=== PATIENT | male | born 1950 | race Caucasian/White ===

== ENCOUNTER 2016-07-09 12:00 | Outpatient (CLI) | payer BC ==
[~2016-07-09] VITALS: Ht 188 cm; Wt 103.4 kg
[~2016-07-09 12:00] MED LIST: PRD20T PO
[2016-07-09] MEDS ORDERED: SULF1TAB34 PO (13:10)
[2016-07-09] MEDS ORDERED: ALPR0.25 PO (13:10)
[2016-07-09] MEDS ORDERED: TAMS0.4C2 PO (13:10)
[2016-07-09] MEDS ORDERED: ADAL40PE SQ (13:10)
[2016-07-09] MEDS ORDERED: OMEG1CAP PO (13:10)
[2016-07-09] MEDS ORDERED: LEFL20TA PO (13:10)
[2016-07-09] MEDS ORDERED: MULT1CAP27 PO (13:10)
[2016-07-09] MEDS ORDERED: FINA5TAB PO (13:10)
[2016-07-09] MEDS ORDERED: OMEG10005 PO (13:10)
[2016-07-09] MEDS ORDERED: CHOL10003 PO (13:10)
[2016-07-09] MEDS ORDERED: BUSP5TAB59 PO (13:10)
[2016-07-09] MEDS ORDERED: ESCI20TA PO (13:10)
[2016-07-09] MEDS ORDERED: PITA2TAB2 PO (13:35)
== END 2016-07-09 13:36 ==
LOC: PREOP 12:00
PROVIDERS: ATTEND Surgery Pediatric Surgery
DX: Z01.818 Encounter for other preprocedural examination (principal); Z12.11 Encounter for screening for malignant neoplasm of colon

== ENCOUNTER 2016-07-11 10:18 | Day surgery (SDC) | payer BC ==
[2016-07-09] MEDS: MIDAZOLAM 2 MG/2 ML (VERSED) VIAL IVP PRN (12:08)
[~2016-07-11 10:18] MED LIST changes: +ADAL40PE SQ; +ALPR0.25 PO; +BUSP5TAB59 PO; +CHOL10003 PO; +ESCI20TA PO; +FINA5TAB PO; +LEFL20TA PO; +MULT1CAP27 PO; +OMEG10005 PO; +OMEG1CAP PO; +PITA2TAB2 PO; +SULF1TAB34 PO; +TAMS0.4C2 PO
[2016-07-11] MEDS ORDERED: NS IV 500 ML 500 ML ONE (10:26)
[2016-07-11] MEDS ORDERED: NALOXONE 0.4 MG/ML 1 ML (NARCAN) VIAL IVP PRN (10:30)
[2016-07-11] MEDS ORDERED: FLUMAZENIL (ROMAZICON) 0.1 MG/ML 5 ML VIAL INJ PRN (10:30)
[2016-07-11] MEDS ORDERED: NS IV 500 ML 500 ML IV ONE (10:30)
[2016-07-11 10:34] VITALS: BP 136/85
--- NOTE | 2016-07-11 10:58 | Conscious Sedation/ASA ---
Conscious Sedation Pre-Proced Time Reviewed: 10:50 ASA Class: 2 Airway Mallampati Classification: (mentasta appropriate class) I. II. III, IV Lungs Heart ASA score ASA 1: a normal healthy patient ASA 2: a patient with a mild systemic disease (mid diabetes, controlled hypertension, obesity ASA 3: a patient with a severe systemic disease that limits activity (angina , COPD, prior Myocardial infarction) ASA 4: a patient with an incapacitating disease that is a constant threat to life (CHF, renal failure) ASA 5: a moribund patient not expected to survive 24 hrs. (ruptured aneurysm) ASA 6: a declared brain patient whose organs are being harvested. For emergent operations, add the letter E after the classification Grade 2 Sedation Plan: Analgesia, Amnesia, Plan communicated to team members, Discussed options with patient/fam, Discussed risks with patient/fam Note The patient is an appropriate candidate to undergo the planned procedure, sedation, and anesthesia. The patient immediately re-assessed prior to indication. THOMAS BROOKS MD July 11, 2016 10:58 am
--- NOTE | 2016-07-11 10:59 | Progress Note-Pre Operative ---
Pre-Operative Progress Note H&P Reviewed The H&P was reviewed, patient examined and no changes noted. Date H&P Reviewed: July 11, 2016 Time H&P Reviewed: 10:50 Pre-Operative Diagnosis: screening colonoscopy THOMAS BROOKS MD July 11, 2016 10:59 am
[2016-07-11] MEDS ORDERED: morphine INJ 10 MG/ML 1ML (SYR OR VIAL) IV PRN (11:00)
[2016-07-11] MEDS ORDERED: ONDANSETRON 4 MG/2 ML (SDV) Z0FRAN IV PRN (11:00)
[2016-07-11] MEDS ORDERED: ACETAMINOPHEN 325 MG TABLET/CAPLET (TYLENOL) PO PRN (11:00)
[2016-07-11] MEDS ORDERED: HYDROcodone/APAP 5 MG/325 MG (LORTAB) TAB PO PRN (11:00)
[2016-07-11] MEDS ORDERED: fentaNYL INJECTION 100 MCG/2 ML AMP ONE ×2 (11:32)
[2016-07-11] MEDS ORDERED: LIDOCAINE JELLY 2% (XYLOCAINE) 5 ML TUBE ONE (11:32)
[2016-07-11] MEDS ORDERED: MIDAZOLAM 2 MG/2 ML (VERSED) VIAL ONE ×4 (11:33)
[2016-07-11] MEDS: fentaNYL INJECTION 100 MCG/2 ML AMP IVP PRN ×4 (11:40→12:10)
[2016-07-11] MEDS: MIDAZOLAM 2 MG/2 ML (VERSED) VIAL IVP PRN ×3 (11:50→11:57)
--- NOTE | 2016-07-11 12:23 | Progress Note-Post Operative ---
Post-Operative Progess Note Surgeon (s)/Practice Managers (s) Surgeon THOMAS BROOKS MD Practice Managers: none Pre-Operative Diagnosis screening colonoscopy Post-Operative Diagnosis chronic stage 2 ext and int hemorrhoids. Procedure & Operative Findings Date of Procedure 07/11/16 Procedure Preformed/Findings Colonoscopy Anesthesia Type CS Estimated Blood Loss Estimated blood loss (mL): minimal Specimens/Packing Specimens Removed none Packing: none THOMAS BROOKS MD July 11, 2016 12:23 pm
--- NOTE | 2016-07-11 12:24 | Discharge Inst-Surgical ---
D/C Lap Instructions-CECILIA Follow Up 10 years Activity as tolerated High Fiber Diet 25g or more per day Avoid Alcohol, Caffeine, Spicy Spearman and Acid foods. Drink 64 fluid oz or more of fluids per day. Symptoms to Report: Fever over 101 degree F, Nausea/Vomiting If any problems/questions: Contact your physician or go to Emergency Room THOMAS BROOKS MD July 11, 2016 12:24 pm
[2016-07-11 12:45] VITALS: BP 136/85
--- NOTE | 2016-07-11 13:02 | OPERATIVE REPORT ---
DATE OF SERVICE: 07/11/2016 DATE OF PROCEDURE: 07/11/2016. ATTENDING PRIMARY CARE PHYSICIAN: PREOPERATIVE DIAGNOSIS: Screening colonoscopy. POSTOPERATIVE DIAGNOSIS: Chronic stage II external and internal hemorrhoids. PROCEDURE: Colonoscopy. SURGEON: Dr. Brooks. ANESTHESIA: Conscious sedation. ESTIMATED BLOOD LOSS: Minimal. FINDINGS: Chronic stage II external and internal hemorrhoids, not actively edematous nor inflamed. The remainder of the rectum and colon were normal. No polyps identified. DISPOSITION: The patient tolerated the procedure well. The patient is a 65-year-old male in need of a followup colonoscopy. This gentleman reports that he is doing well and for the most part having normal bowel movements with no major issues with diarrhea or constipation. He also does not report any issues with red blood per rectum or any dark tarry stools. He also does not report any family history of colon cancer. His last colonoscopy was in 2005. The patient was brought to the endoscopy suite, laid in the left lateral decubitus position. After adequate IV pain and sedating medications and conscious sedation anesthesia, a digital rectal examination was performed. Chronic mild stage II external and internal hemorrhoids were identified which were not actually edematous nor inflamed and no bleeding. Normal sphincter tone was felt and there were no palpable masses. The prostate gland was palpable and appeared normal. The endoscope was then intubated into the anus and rectum and gently insufflated. The endoscope was then advanced to the valves of Lamb of the rectum with no polyps or any neoplasms identified. We then proceeded through the sigmoid colon where no diverticulosis identified. The endoscope was then advanced to the remainder of the descending, transverse and ascending colon to the cecum. These segments were normal. There were no polyps or any neoplasms identified throughout the colon or rectum. The endoscope was then slowly withdrawn while taking a second look and suctioning of residual air with no additional findings. The patient tolerated the procedure well. We will recommend continued medical management with a high fiber diet with at least 30 grams of fiber per day as well as at least 64 fluid ounces of water to promote soft stools on a daily basis. There were no polyps identified and he does not need another colonoscopy for another 10 years. Job ID: [id number] DocumentID: [id number] Dictated Date: 07/11/2016 12:22:06 Glove Turner And Former Date: 07/11/2016 13:02:05 Dictated By: THOMAS BROOKS MD
[2016-07-11 13:11] VITALS: BP 123/87
[2016-07-11 13:15] VITALS: BP 123/87
== END 2016-07-11 13:20 | disposition home or self-care (01) ==
LOC: ENDO 10:18
PROVIDERS: ATTEND Surgery Pediatric Surgery
DX: Z12.11 Encounter for screening for malignant neoplasm of colon (principal); K64.1 Second degree hemorrhoids; M06.9 Rheumatoid arthritis, unspecified; E78.00 Pure hypercholesterolemia, unspecified; N40.0 Benign prostatic hyperplasia without lower urinary tract symptoms; Z96.652 Presence of left artificial knee joint; Z79.899 Other long term (current) drug therapy

== ENCOUNTER 2016-09-10 15:42 | Emergency (ER) | payer BC ==
[~2016-09-10] VITALS: Ht 182.9 cm; Wt 90.7 kg
[2016-09-10] MEDS ORDERED: morphine INJ 10 MG/ML 1ML (SYR OR VIAL) IV STA (16:01)
--- NOTE | 2016-09-10 16:01 | ED Chest Pain ---
General Chief Complaint: Chest Pain Stated Complaint: CHEST PAIN Nursing Triage Note: AMBULATED TO ROOM 08 WITH COMPLAINTS OF CHEST PRESSURE ET SOA X2 DAYS. Nursing Sepsis Screen: No Definite Risk Source: patient, spouse Exam Limitations: no limitations History of Present Illness Time seen by provider: 15:46 Initial Comments Patient presents by private conveyance with his spouse coming from Dr. Celestin's clinic. For the past 2-3 days she's felt a tightness and intermittent pain comes and goes in the center of his chest. This become pain with shortness of breath especially on exertion. He is not having any dyspnea at rest. No sweats. He has occasional nausea. He does not take aspirin or any other blood thinner. He has no coronary history however he had a stress test prior to his back surgery and it was positive so he got a catheter in November 2015 which was subsequently unremarkable according to the family. This was done at [place]. He is not taking any medicines for blood pressure or thyroid or diabetes. He does see Dr. Black, urology for chronic prostate issues. He is on tamsulosin and Bactrim. He also has rheumatoid arthritis for which he is on Humira and Arava. He also has a history of anxiety for which she uses Xanax and Lexapro and BuSpar. He has high cholesterol and is on Livalo. He takes them overload as well as occasional ibuprofen for pain. Allergies and Home Medications Allergies Coded Allergies: No Known Drug Allergies (Verified , 07/11/16) Home Medications Adalimumab 40 Mg/0.8 Ml Pen.ij.kit, 40 MG SQ every 2 weeks, (Reported) Alprazolam 0.25 Mg Tablet, 0.25 MG PO DAILY, (Reported) Buspirone HCl 5 Mg Tablet, 5 MG PO DAILY, (Reported) Cholecalciferol (Vitamin D3) 1,000 Unit Tablet, 1,000 UNIT PO DAILY, (Reported) Escitalopram Oxalate 20 Mg Tablet, 20 MG PO DAILY, (Reported) Finasteride 5 Mg Tablet, 5 MG PO DAILY, (Reported) Leflunomide 20 Mg Tablet, 20 MG PO DAILY, (Reported) Multivitamin 1 Each Capsule, 1 EACH PO DAILY, (Reported) Aurora-3 Acid Ethyl Esters 1 Gm Capsule, 2 GM PO BID, (Reported) take 2 (1gm) tabs Pitavastatin Calcium 2 Mg Tablet, 2 MG PO DAILY, (Reported) Sulfamethoxazole/Trimethoprim 1 Each Tablet, 0.5 EACH PO DAILY, (Reported) Tamsulosin HCl 0.4 Mg Cap.er.24h, 0.4 MG PO DAILY, (Reported) Review of Systems Constitutional: No chills, No diaphoresis, No fever Respiratory: See HPI, Denies Cough, Shortness of Air, SOA With Exertion, Denies SOA at Rest, Denies Wheezing Cardiovascular: See HPI, Chest Pain, Denies Edema, Denies Irregular Heart Rate , Denies Palpitations Gastrointestinal: See HPI, Denies Abdominal Pain, Denies Constipated, Denies Diarrhea, Nausea Genitourinary: Denies Burning, Denies Discharge Musculoskeletal: No back pain, joint pain (chronic RA) Skin: No pruritus, No rash Psychiatric/Neurological: Headache, Denies Numbness (past several days) Hematologic/Lymphatic: Denies Anemia, Denies Blood Clots Past Jmhpiaj-Hvzgfu-Fymffl Hx Patient Social History Alcohol Use: Denies Use Recreational Drug Use: No Smoking Status: Never a Smoker Recent Foreign Travel: No Contact w/Someone Who Travel: No Recent Infectious Disease Expo: No Recent Hopitalizations: No Seasonal Allergies Seasonal Allergies: No Surgeries HX Surgeries: Yes (Left TKR, back sx, orchiectomy, hand joint fusion, ) Surgeries: Appendectomy, Testicular Respiratory Hx Respiratory Disorders: Yes Respiratory Disorders: Sleep Apnea Cardiovascular Hx Cardiac Disorders: No Neurological Hx Neurological Disorders: No Reproductive System Hx Reproductive Disorders: No Genitourinary Hx Genitourinary Disorders: No Gastrointestinal Hx Gastrointestinal Disorders: No Musculoskeletal Hx Musculoskeletal Disorders: Yes Musculoskeletal Disorders: Arthritis, Rheumatoid Arthritis, Chronic Back Pain Endocrine Hx Endocrine Disorders: No HEENT HX ENT Disorders: No Cancer Hx Cancer: No Psychosocial Hx Psychiatric Problems: No Integumentary HX Skin/Integumentary Disorder: No Blood Transfusions Hx Blood Disorders: No Physical Exam Vital Signs Vital Sign - Last 12Hours 09/10/16 15:43 Temp 98.0 Pulse 82 Resp 16 B/P (MAP) 161/89 Pulse Ox 97 Capillary Refill : Less Than 3 Seconds General Appearance: No Apparent Distress, WD/WN HEENT: PERRL/EOMI, Pharynx Normal Neck: Normal Inspection, Supple Respiratory: Chest Non Tender, Lungs Clear, Normal Breath Sounds Cardiovascular: Regular Rate, Rhythm, No Edema, No Gallop, No Murmur, Normal Peripheral Pulses Gastrointestinal: Normal Bowel Sounds, Non Tender, Soft Extremity: Normal Capillary Refill, Normal Inspection, Calf Tenderness, No Inflammation, No Pedal Edema, No Swelling, Other (no erythema. Patient is tender on most every joint pressed on including the rib cage) Neurologic/Psychiatric: Alert, Oriented x3 (.), Normal Mood/Affect Skin: Normal Color, Warm/Dry, No Pallor Lymphatic: No Adenopathy Progress/Results/Core Measures Results/Orders Lab Results Laboratory Tests Test 09/10/16 15:55 09/10/16 18:31 Range/Units White Blood Count 7.8 4.3-11.0 10^3/uL Red Blood Count 4.88 4.35-5.85 10^6/uL Hemoglobin 14.2 13.3-17.7 G/DL Hematocrit 42 40-54 % Mean Corpuscular Volume 86 80-99 FL Mean Corpuscular Hemoglobin 29 25-34 PG Mean Corpuscular Hemoglobin Concent 34 32-36 G/DL Red Cell Distribution Width 13.1 10.0-14.5 % Platelet Count 167 130-400 10^3/uL Mean Platelet Volume 11.1 H 7.4-10.4 FL Neutrophils (%) (Auto) 61 42-75 % Lymphocytes (%) (Auto) 23 12-44 % Monocytes (%) (Auto) 13 H 0-12 % Eosinophils (%) (Auto) 2 0-10 % Basophils (%) (Auto) 0 0-10 % Neutrophils # (Auto) 4.8 1.8-7.8 X 10^3 Lymphocytes # (Auto) 1.8 1.0-4.0 X 10^3 Monocytes # (Auto) 1.0 0.0-1.0 X 10^3 Eosinophils # (Auto) 0.2 0.0-0.3 10^3/uL Basophils # (Auto) 0.0 0.0-0.1 10^3/uL Erythrocyte Sedimentation Rate 6 0-30 MM/HR Prothrombin Time 12.4 12.2-14.7 SEC INR Comment 1.0 0.8-1.4 Activated Partial Thromboplast Time 29 24-35 SEC D-Dimer 0.30 0.00-0.49 UG/ML Sodium Level 139 135-145 MMOL/L Potassium Level 4.3 3.6-5.0 MMOL/L Chloride Level 109 H 98-107 MMOL/L Carbon Dioxide Level 23 21-32 MMOL/L Anion Gap 7 5-14 MMOL/L Blood Urea Nitrogen 25 H 7-18 MG/DL Creatinine 0.87 0.60-1.30 MG/DL Estimat Glomerular Filtration Rate > 60 BUN/Creatinine Ratio 29 Glucose Level 112 H 70-105 MG/DL Calcium Level 9.5 8.5-10.1 MG/DL Magnesium Level 2.3 1.8-2.4 MG/DL Total Bilirubin 0.8 0.1-1.0 MG/DL Aspartate Amino Transf (AST/SGOT) 37 H 5-34 U/L Alanine Aminotransferase (ALT/SGPT) 36 0-55 U/L Alkaline Phosphatase 68 40-136 U/L Myoglobin 68.7 10.0-92.0 NG/ML Troponin I < 0.30 < 0.30 <0.30 NG/ML C-Reactive Protein High Sensitivity 0.08 0.00-0.50 MG/DL Total Protein 7.1 6.4-8.2 GM/DL Albumin 4.2 3.2-4.5 GM/DL Amylase Level 52 25-125 U/L My Orders Orders - AIXA,JENNA J Cbc With Automated Diff (09/10/16 16:01) Magnesium (09/10/16 16:01) Chest 1 View, Ap/Pa Only (09/10/16 16:01) Ekg Tracing (09/10/16 16:01) Cardiac Profile 1 (09/10/16 16:01) Comprehensive Metabolic Panel (09/10/16 16:01) Myoglobin Serum (09/10/16 16:01) Protime With Inr (09/10/16 16:) Partial Thromboplastin Time (09/10/16 16:01) O2 (09/10/16 16:01) Monitor-Rhythm Ecg Trace Only (09/10/16 16:01) Lipid Panel (09/11/16 06:00) Aspirin Chewable Tablet (Baby Aspirin Ch (09/10/16 16:15) Rx-Nitroglycerin Sl Tabs (Rx-Nitrostat S (09/10/16 16:15) Morphine Injection (Morphine Injection (09/10/16 16:01) Saline Lock/Iv-Start (7/10/17 16:01) Amylase (09/10/16 16:01) Fibrin Degradation Products (09/10/16 16:01) Hs C Reactive Protein (09/10/16 16:53) Erythrocyte Sedimentation Rate (09/10/16 16:53) Troponin I (09/10/16 18:27) Medications Given in ED Current Medications Medications Dose Ordered Sig/Danette Route Start Time Stop Time Status Last Admin Dose Admin Aspirin 324 mg ONCE ONCE PO 09/10/16 16:15 09/10/16 16:16 DC 09/10/16 16:16 324 MG Nitroglycerin 0.4 mg PRN PRN SL 09/10/16 16:15 09/10/16 16:33 0.4 MG Vital Signs/I&O Vital Sign - Last 12Hours 09/10/16 15:43 Temp 98.0 Pulse 82 Resp 16 B/P (MAP) 161/89 Pulse Ox 97 Blood Pressure Mean: 113 Progress Note #1: Time: 16:[address] Celestin's office and they're faxing over a copy of the catheter report from November 2015. Calf tenderness does not have any other hallmarks of a DVT. We'll get a d-dimer but it also may be falsely elevated given his rheumatoid arthritis. He is satting 98% on room air despite feeling a little short of breath. Heart rate normal. Well scores unlikely. Progress Note #2: Time: 16:30 Progress Note Receive Lab report dated 11/15/15 with the appropriate patient's name and date of attached. Done by Konrad Meyer. Left heart catheter after an abnormal stress test. Impression normal coronary arteries and normal LV function. The report was reviewed in detail. Patient reports she is having some discomfort in his right hip which his chronic and exacerbated by being on the cot. It is relieved by laying down and placing a pillow under the hip. Progress Note #3: Time: 19:05 Progress Note Patient's had a negative catheter 10 months ago as well as a delta T of 0. We' ll let him go home with the understanding that he will call Dr. Celestin's office and set up an appointment this week. He can also set up follow-up with Dr. Medrano if he prefers. ECG Initial ECG Impression Date: Sep 10, 2016 Initial ECG Impression Time: 15:49 Initial ECG Rate: 82 Initial ECG Rhythm: Normal Sinus Initial ECG Intervals: Normal Initial ECG Impression: Normal Initial ECG Comparisson: No Previous ECG Available Comment No ST wave aberration Diagnostic Imaging Diagonstic Imaging: Xray Plain Films/CT/US/NM/MRI: chest Comments No acute cardiopulmonary processes noted. [facility] [place], [place] NAME: [facility] REC#: [id number] PT STATUS: REG ER : 1950 PHYSICIAN: JENNA KRUSE MD ADMIT DATE: 09/10/16/ER Draft Date of Exam:09/10/16 CHEST 1 VIEW, AP/PA ONLY INDICATION: Substernal chest pain. EXAMINATION: Portable chest at 4:15 PM. FINDINGS: The heart size and pulmonary vascularity are normal. The lungs are clear. There are no effusions or pneumothoraces. IMPRESSION: Negative chest. Dictated on workstation # [id number] Dict: 09/10/16 1626 Trans: 09/10/16 1627 [id number] Interpreted by: BUDDY KIRK Electronically signed by: Reviewed: Reviewed by Me Departure Impression Impression: Primary Impression: Chest pain Qualified Codes: R07.2 - Precordial pain Disposition: 01 HOME, SELF-CARE Condition: Improved Departure-Patient Inst. Decision time for Depature: 19:06 Referrals: XIOMY CELESTIN MD (PCP/Family) Primary Care Physician Patient Instructions: Chest Pain (DC) Add. Discharge Instructions: Your chest pain does not seem to be from a rheumatoid flare considering your CRP and ESR were normal; Nor does it appear to be from a heart attack. You should call Dr. Celestin's office in the morning and make an appointment to be seen sometime in the next couple days to follow up this visit. If you have new or worsening symptoms such as fever or nausea and vomiting you should return to the ER otherwise follow up with your PCP. Make sure you are taking plenty of fluids. All discharge instructions reviewed with patient and/or family. Voiced understanding. Copy Copies To 1: XIOMY CELESTIN MD, TITUS J Sep 10, 2016 16:01
[2016-09-10 16:08] LABS: BASOPHILS % (AUTO) 0 % (0-10); EOSINOPHILS # (AUTO) 0.2 10^3/uL (0.0-0.3); EOSINOPHILS % (AUTO) 2 % (0-10); LYMPHOCYTES # (AUTO) 1.8 X 10^3 (1.0-4.0); LYMPHOCYTES % (AUTO) 23 % (12-44); MEAN CORPUSCULAR HEMOGLOBIN 29 PG (25-34); MEAN CORPUSCULAR HGB CONC 34 G/DL (32-36); MEAN CORPUSCULAR VOLUME 86 FL (80-99); MEAN PLATELET VOLUME 11.1 FL (7.4-10.4); MONOCYTES % (AUTO) 13 % (0-12); NEUTROPHILS # (AUTO) 4.8 X 10^3 (1.8-7.8); NEUTROPHILS % (AUTO) 61 % (42-75); PLATELET COUNT 167 10^3/uL (130-400); RED BLOOD COUNT 4.88 10^6/uL (4.35-5.85); RED CELL DISTRIBUTION WIDTH 13.1 % (10.0-14.5); WHITE BLOOD COUNT 7.8 10^3/uL (4.3-11.0)
[2016-09-10] MEDS ORDERED: ASPIRIN 81 MG CHEW (CHILDREN'S ASA) PO ONE (16:15)
[2016-09-10] MEDS: RX-NITROGLYCERIN 0.4 MG TAB BTL 25'S SL PRN ×2 (16:16→16:33)
--- NOTE | 2016-09-10 16:27 | Diagnostic Imaging Report ---
INDICATION: Substernal chest pain. EXAMINATION: Portable chest at 4:15 PM. FINDINGS: The heart size and pulmonary vascularity are normal. The lungs are clear. There are no effusions or pneumothoraces. IMPRESSION: Negative chest. Dictated by: Dictated on workstation # [id number]
[2016-09-10 16:28] LABS: ALANINE AMINOTRANSFERASE 36 U/L (0-55); ALBUMIN 4.2 GM/DL (3.2-4.5); AMYLASE 52 U/L (25-125); ANION GAP 7 MMOL/L (5-14); ASPARTATE AMINO TRANSFERASE 37 U/L (5-34); BILIRUBIN,TOTAL 0.8 MG/DL (0.1-1.0); BLOOD UREA NITROGEN 25 MG/DL (7-18); BUN/CREATININE RATIO 29; CALCIUM 9.5 MG/DL (8.5-10.1); CARBON DIOXIDE 23 MMOL/L (21-32); CHLORIDE 109 MMOL/L (98-107); CREATININE SERUM 0.87 MG/DL (0.60-1.30); GFR ESTIMATED > 60; GLUCOSE 112 MG/DL (70-105); MAGNESIUM 2.3 MG/DL (1.8-2.4); POTASSIUM 4.3 MMOL/L (3.6-5.0); SODIUM 139 MMOL/L (135-145); TOTAL PROTEIN 7.1 GM/DL (6.4-8.2)
[2016-09-10 16:35] LABS: MYOGLOBIN SERUM 68.7 NG/ML (10.0-92.0)
[2016-09-10 16:56] LABS: PROTHROMBIN TIME PATIENT 12.4 SEC (12.2-14.7)
[2016-09-10 19:25] VITALS: BP 155/84
--- OUTSIDE RECORDS SUMMARY | 2016-09-11 18:06 | XMS REPORT | Continuity of Care Document ---
Author Author [facility] Organization [facility] Address Unknown Phone Unavailable Care Team Providers Care Educational Programming Director Name Role Phone Dez Celestin PCP [phone] Source Comments Some departments are not documenting in the electronic medical record. If you do not see the information that you expected, contact Release of Information in the Health Information Management department at [phone] for further assistance in locating additional records.[facility] Active Allergies and Adverse Reactions No Known Allergies Current Medications Prescription Sig. Disp. Refills Start End Date Status Date Naproxen-Esomeprazole Mag Take by mouth twice Active (VIMOVO) 500-20 mg TbID daily. GLUCOSAM/MSM/CHONDR/VIT Take by mouth twice Active C/HYAL daily. (GLUCOSAMINE-CHONDROITIN- MSM PO) tamsulosin (FLOMAX) 0.4 Take 0.4 mg by mouth Active mg capsule daily. Do not crush, chew or open capsules. sertraline (ZOLOFT) 100 Take 100 mg by mouth Active mg tablet daily. trimethoprim/sulfamethoxa Take 1 Tab by mouth twice Active zole (BACTRIM) 80/400 mg daily. tablet finasteride (PROSCAR) 5 Take 5 mg by mouth daily. Active mg tablet leflunomide (ARAVA) 20 mg Take 20 mg by mouth Active tablet daily. HYDROcodone/acetaminophen Take 1 Tab by mouth every Active (NORCO) 7.5/325 mg tablet 6 hours as needed for Pain adalimumab(+) (HUMIRA Inject 40 mg into area(s) Active PEN) 40 mg/0.8 mL as directed once. injection pen Active Problems No known active problems Social History Tobacco Use Types Packs/Day Years Used Date Never Smoker Last Filed Vital Signs Vital Sign Reading Time Taken Blood Pressure 140/70 09/06/2015 9:43 AM CDT Pulse 77 09/06/2015 9:43 AM CDT Temperature 36.9 C (98.4 F) 09/06/2015 9:43 AM CDT Respiratory Rate 16 09/06/2015 9:43 AM CDT Height 1.88 m (6' 2") 09/06/2015 9:43 AM CDT Weight 102.967 kg (227 lb) 09/06/2015 9:43 AM CDT Body Mass Index 29.13 09/06/2015 9:43 AM CDT Oxygen Saturation 98% 09/06/2015 9:43 AM CDT Plan of Care Health Maintenance Due Date Last Done Comments Hepatitis C Screening 1950 Physical (Comprehensive) 11/12/1958 Exam Pertussis Vaccine 11/12/1962 Tetanus Vaccine 11/12/1968 Colorectal Cancer 11/12/2001 Screening Shingles Vaccine 2011 Influenza Vaccine 11/02/2016 Results from Last 3 Months Not on file
--- OUTSIDE RECORDS SUMMARY | 2016-09-11 18:07 | XMS REPORT | Continuity of Care Document ---
Author Author [facility] Organization [facility] Address Unknown Phone Unavailable Allergies Active Description Code Type Severity Reaction Onset Reported/Identified Relationship to Patient Clinical Status Yes No Known Drug Allergies [id number] Drug Allergy Unknown N/ A 07/11/2016 Medications Problems Date Dx Coded Attending Type Code Diagnosis Diagnosed By 04/15/2015 LUCAS MACIAS MD, Ot M47.816 SPONDYLOSIS W/O MYELOPATHY OR RADICULOPA 04/15/2015 LUCAS MACIAS MD Ot M51.16 INTERVERTEBRAL DISC DISORDERS W RADICULO 04/15/2015 LUCAS MACIAS MD Ot Z79.899 OTHER VIDEO ENGINEER (CURRENT) DRUG THERAPY 05/16/2015 LUCAS MACIAS MD Ot M47.816 05/16/2015 LUCAS MACIAS MD Ot M51.16 05/16/2015 LUCAS MACIAS MD Ot Z79.899 05/30/2015 LUCAS MACIAS MD Ot M47.816 05/30/2015 LUCAS MACIAS MD Ot M51.16 05/30/2015 LUCAS MACIAS MD Ot Z79.899 02/27/2016 LEANDER GRIER APRN Ot N50.82 SCROTAL PAIN 02/27/2016 LEANDER GRIER APRN Ot R10.32 LEFT LOWER QUADRANT PAIN 02/28/2016 LUCAS MACIAS MD Ot M47.816 SPONDYLOSIS W/O MYELOPATHY OR RADICULOPA 02/28/2016 LUCAS MACIAS MD Ot M51.16 INTERVERTEBRAL DISC DISORDERS W RADICULO 02/28/2016 LUCAS MACIAS MD Ot Z79.899 OTHER PRISON (CURRENT) DRUG THERAPY 02/29/2016 LEANDER GRIER APRN Ot N50.82 SCROTAL PAIN 02/29/2016 LEANDER GRIER APRN Ot R10.32 LEFT LOWER QUADRANT PAIN 03/04/2016 LEANDER GRIER APRN Ot N50.82 SCROTAL PAIN 03/04/2016 LEANDER GRIER APRN Ot R10.32 LEFT LOWER QUADRANT PAIN 07/09/2016 THOMAS BROOKS MD Ot Z01.818 ENCOUNTER FOR OTHER PREPROCEDURAL EXAMIN 07/09/2016 THOMAS BROOKS MD Ot Z12.11 ENCOUNTER FOR SCREENING FOR MALIGNANT NE 07/09/2016 THOMAS BROOKS MD Ot Z01.818 ENCOUNTER FOR OTHER PREPROCEDURAL EXAMIN 07/09/2016 THOMAS BROOKS MD Ot Z12.11 ENCOUNTER FOR SCREENING FOR MALIGNANT NE 07/11/2016 THOMAS BROOKS MD Ot E78.00 PURE HYPERCHOLESTEROLEMIA, UNSPECIFIED 07/11/2016 THOMAS BROOKS MD Ot K64.1 SECOND DEGREE HEMORRHOIDS 07/11/2016 THOMAS BROOKS MD Ot M06.9 RHEUMATOID ARTHRITIS, UNSPECIFIED 07/11/2016 THOMAS BROOKS MD Ot N40.0 BENIGN PROSTATIC HYPERPLASIA WITHOUT LOW 07/11/2016 THOMAS BROOKS MD Ot Z12.11 ENCOUNTER FOR SCREENING FOR MALIGNANT NE 07/11/2016 THOMAS BROOKS MD Ot Z79.899 OTHER PRISON (CURRENT) DRUG THERAPY 07/11/2016 THOMAS BROOKS MD Ot Z96.652 PRESENCE OF LEFT ARTIFICIAL KNEE JOINT 07/12/2016 THOMAS BROOKS MD Ot E78.00 PURE HYPERCHOLESTEROLEMIA, UNSPECIFIED 07/12/2016 THOMAS BROOKS MD Ot K64.1 SECOND DEGREE HEMORRHOIDS 07/12/2016 THOMAS BROOKS MD Ot M06.9 RHEUMATOID ARTHRITIS, UNSPECIFIED 07/12/2016 THOMAS BROOKS MD Ot N40.0 BENIGN PROSTATIC HYPERPLASIA WITHOUT LOW 07/12/2016 THOMAS BROOKS MD Ot Z12.11 ENCOUNTER FOR SCREENING FOR MALIGNANT NE 07/12/2016 THOMAS BROOKS MD Ot Z79.899 OTHER PRISON (CURRENT) DRUG THERAPY 07/12/2016 THOMAS BROOKS MD Ot Z96.652 PRESENCE OF LEFT ARTIFICIAL KNEE JOINT 07/17/2016 THOMAS BROOKS MD Ot E78.00 PURE HYPERCHOLESTEROLEMIA, UNSPECIFIED 07/17/2016 THOMAS BROOKS MD Ot K64.1 SECOND DEGREE HEMORRHOIDS 07/17/2016 THOMAS BROOKS MD Ot M06.9 RHEUMATOID ARTHRITIS, UNSPECIFIED 07/17/2016 THMOAS BROOKS MD Ot N40.0 BENIGN PROSTATIC HYPERPLASIA WITHOUT LOW 07/17/2016 THOMAS BROOKS MD Ot Z12.11 ENCOUNTER FOR SCREENING FOR MALIGNANT NE 07/17/2016 THOMAS BROOKS MD Ot Z79.899 OTHER VIDEO ENGINEER (CURRENT) DRUG THERAPY 07/17/2016 THOMAS BROOKS MD Ot Z96.652 PRESENCE OF LEFT ARTIFICIAL KNEE JOINT 07/18/2016 THOMAS BROOKS MD Ot E78.00 PURE HYPERCHOLESTEROLEMIA, UNSPECIFIED 07/18/2016 THOMAS BROOKS MD Ot K64.1 SECOND DEGREE HEMORRHOIDS 07/18/2016 THOMAS BROOKS MD, Ot M06.9 RHEUMATOID ARTHRITIS, UNSPECIFIED 07/18/2016 THOMAS BROOKS MD, Ot N40.0 BENIGN PROSTATIC HYPERPLASIA WITHOUT LOW 07/18/2016 THOMAS BROOKS MD Ot Z12.11 ENCOUNTER FOR SCREENING FOR MALIGNANT NE 07/18/2016 THOMAS BROOKS MD, Ot Z79.899 OTHER PRISON (CURRENT) DRUG THERAPY 07/18/2016 THOMAS BROOKS MD, Ot Z96.652 PRESENCE OF LEFT ARTIFICIAL KNEE JOINT Procedures Results Test Result Range Complete blood count (CBC) with automated white blood cell (WBC) differential - 02/27/16 12:00 Blood leukocytes automated count (number/volume) 5.4 10*3/ uL 4.3-11.0 Blood erythrocytes automated count (number/volume) 5.19 10*6 /uL 4.35-5.85 Venous blood hemoglobin measurement (mass/volume) 14.7 g/dL 13.3-17.7 Blood hematocrit (volume fraction) 44 % 40-54 Automated erythrocyte mean corpuscular volume 84 [foz_us] 80-99 Automated erythrocyte mean corpuscular hemoglobin (mass per erythrocyte) 28 pg 25-34 Automated erythrocyte mean corpuscular hemoglobin concentration measurement ( mass/volume) 34 g/dL 32-36 Automated erythrocyte distribution width ratio 13.2 % 10.0-14.5 Automated blood platelet count (count/volume) 205 10*3/uL 130-400 Automated blood platelet mean volume measurement 10.4 [foz_ us] 7.4-10.4 Automated blood neutrophils/100 leukocytes 48 % 42-75 Automated blood lymphocytes/100 leukocytes 37 % 12-44 Blood monocytes/100 leukocytes 11 % 0-12 Automated blood eosinophils/100 leukocytes 4 % 0-10 Automated blood basophils/100 leukocytes 1 % 0-10 Blood neutrophils automated count (number/volume) 2.6 10*3 1.8-7.8 Blood lymphocytes automated count (number/volume) 2.0 10*3 1.0-4.0 Blood monocytes automated count (number/volume) 0.6 10*3 0.0-1.0 Automated eosinophil count 0.2 10*3/uL 0.0-0.3 Automated blood basophil count (count/volume) 0.0 10*3/uL 0.0-0.1 Comprehensive metabolic panel - 02/27/16 12:00 Serum or plasma sodium measurement (moles/volume) 138 mmol/ L 135-145 Serum or plasma potassium measurement (moles/volume) 4.3 mmol/L 3.6-5.0 Serum or plasma chloride measurement (moles/volume) 107 mmol /L 98-107 Carbon dioxide 23 mmol/L 21-32 Serum or plasma anion gap determination (moles/volume) 8 mmol/L 5-14 Serum or plasma urea nitrogen measurement (mass/volume) 25 mg/dL 7-18 Serum or plasma creatinine measurement (mass/volume) 1.02 mg /dL 0.60-1.30 Serum or plasma urea nitrogen/creatinine mass ratio 25 NRG Serum or plasma creatinine measurement with calculation of estimated glomerular filtration rate > NRG Serum or plasma glucose measurement (mass/volume) 116 mg/dL 70-105 Serum or plasma calcium measurement (mass/volume) 9.4 mg/dL 8.5-10.1 Serum or plasma total bilirubin measurement (mass/volume) 0.5 mg/dL 0.1-1.0 Serum or plasma alkaline phosphatase measurement (enzymatic activity/volume) 60 U/L 40-136 Serum or plasma aspartate aminotransferase measurement (enzymatic activity/ volume) 35 U/L 5-34 Serum or plasma alanine aminotransferase measurement (enzymatic activity/volume ) 28 U/L 0-55 Serum or plasma protein measurement (mass/volume) 7.0 g/dL 6.4-8.2 Serum or plasma albumin measurement (mass/volume) 4.4 g/dL 3.2-4.5 Complete urinalysis with reflex to culture - 02/27/16 13:36 Urine color determination YELLOW NRG Urine clarity determination SLIGHTLY CLOUDY NRG Urine pH measurement by test strip 7 5- 9 Specific gravity of urine by test strip 1.010 1.016-1.022 Urine protein assay by test strip, semi-quantitative NEGATIVE NEGATIVE Urine glucose detection by automated test strip NEGATIVE NEGATIVE Erythrocytes detection in urine sediment by light microscopy NEGATIVE NEGATIVE Urine ketones detection by automated test strip NEGATIVE NEGATIVE Urine nitrite detection by test strip NEGATIVE NEGATIVE Urine total bilirubin detection by test strip NEGATIVE NEGATIVE Urine urobilinogen measurement by automated test strip (mass/volume) NORMAL NORMAL Urine leukocyte esterase detection by dipstick NEGATIVE NEGATIVE Automated urine sediment erythrocyte count by microscopy (number/high power field) NONE NRG Automated urine sediment leukocyte count by microscopy (number/high power field ) NONE NRG Bacteria detection in urine sediment by light microscopy NEGATIVE NRG Squamous epithelial cells detection in urine sediment by light microscopy 2-5 NRG Crystals detection in urine sediment by light microscopy NONE NRG Casts detection in urine sediment by light microscopy NONE NRG Mucus detection in urine sediment by light microscopy NEGATIVE NRG Complete urinalysis with reflex to culture NO NRG Encounters ACCT No. Visit Date/Time Discharge Status Pt. Type Provider Facility Loc./Unit Complaint [id number] 07/11/2016 10:18:00 2016 13:20:00 DIS Outpatient THOMAS BROOKS MD [facility] ENDO SCREENING [id number] 07/09/2016 12:00:00 2016 13:36:00 DIS Outpatient THOMAS BROOKS MD [facility] PREOP SCREENING [id number] 02/27/2016 11:14:00 2015 14:52:00 DIS Emergency LEANDER GRIER [facility] ER LEFT GROIN PAIN [id number] 04/15/2015 07:24:00 2015 09:04:00 DIS Outpatient LUCAS MACIAS MD [facility] CARD DD W/RADICULOPATHY LUMBAR [id number] 05/02/2015 12:53:00 ACT Outpatient LUCAS MACIAS MD [facility] CARD SPONDYLOSIS WITH LUMBAR RADICULOPATHY
[2016-09-20] MEDS ORDERED: PRED10TA22 PO (10:34)
== END 2016-09-10 19:25 | disposition home or self-care (01) ==
LOC: EDUNIT# 15:42 → ER 15:43
DX: Z96.652 Presence of left artificial knee joint; Z90.79 Acquired absence of other genital organ(s); M06.88 Other specified rheumatoid arthritis, vertebrae; Z90.49 Acquired absence of other specified parts of digestive tract; R07.9 Chest pain, unspecified
CPT/HCPCS: 36415; 71010; 80053; 82150; 83735; 83874; 84484; 85025; 85379; 85610; 85652; 85730; 86141; 93005; 93041; 96374

== ENCOUNTER 2016-09-13 20:22 | Outpatient (CLI) | payer BC ==
[~2016-09-13] VITALS: Ht 188 cm; Wt 90.7 kg
[2016-09-13] MEDS ORDERED: NS IV 1000 ML 1,000 ML IV ONE ×2 (20:45→21:45)
[2016-09-13 23:19] VITALS: BP 136/72
[2016-09-20] MEDS ORDERED: PRED10TA22 PO (10:34)
== END 2016-09-13 22:15 | disposition home or self-care (01) ==
LOC: 4THo 20:22 → 4TH 20:22 → 4THo 22:15
PROVIDERS: ATTEND Physician Assistant
DX: E86.9 Volume depletion, unspecified (principal); R51 Headache

== ENCOUNTER → 2016-09-13 | Outpatient (CLI) | payer BC ==
[2016-09-13 15:17] LABS: BASOPHILS % (AUTO) 0 % (0-10); EOSINOPHILS # (AUTO) 0.2 10^3/uL (0.0-0.3); EOSINOPHILS % (AUTO) 3 % (0-10); LYMPHOCYTES # (AUTO) 1.8 X 10^3 (1.0-4.0); LYMPHOCYTES % (AUTO) 23 % (12-44); MEAN CORPUSCULAR HEMOGLOBIN 30 PG (25-34); MEAN CORPUSCULAR HGB CONC 34 G/DL (32-36); MEAN CORPUSCULAR VOLUME 86 FL (80-99); MEAN PLATELET VOLUME 10.9 FL (7.4-10.4); MONOCYTES # (AUTO) 0.8 X 10^3 (0.0-1.0); MONOCYTES % (AUTO) 10 % (0-12); NEUTROPHILS % (AUTO) 64 % (42-75); PLATELET COUNT 181 10^3/uL (130-400); RED BLOOD COUNT 4.64 10^6/uL (4.35-5.85); RED CELL DISTRIBUTION WIDTH 13.1 % (10.0-14.5); WHITE BLOOD COUNT 7.7 10^3/uL (4.3-11.0)
[2016-09-13 15:25] LABS: BILIRUBIN,URINE NEGATIVE (NEGATIVE); KETONES,URINE 1+ (NEGATIVE); LEUKOCYTE ESTERASE ,URINE 1+ (NEGATIVE); NITRITE,URINE NEGATIVE (NEGATIVE); PH,URINE 5 (5-9); PROTEIN,URINE 1+ (NEGATIVE); UROBILINOGEN,URINE NORMAL (NORMAL)
[2016-09-13 15:33] LABS: ALANINE AMINOTRANSFERASE 29 U/L (0-55); ALBUMIN 4.3 GM/DL (3.2-4.5); ANION GAP 9 MMOL/L (5-14); ASPARTATE AMINO TRANSFERASE 35 U/L (5-34); BILIRUBIN,TOTAL 0.8 MG/DL (0.1-1.0); BLOOD UREA NITROGEN 25 MG/DL (7-18); BUN/CREATININE RATIO 29; CALCIUM 9.2 MG/DL (8.5-10.1); CARBON DIOXIDE 22 MMOL/L (21-32); CHLORIDE 110 MMOL/L (98-107); CREATINE KINASE 319 U/L (30-200); CREATININE SERUM 0.85 MG/DL (0.60-1.30); GFR ESTIMATED > 60; GLUCOSE 115 MG/DL (70-105); SODIUM 141 MMOL/L (135-145); TOTAL PROTEIN 7.2 GM/DL (6.4-8.2); hs C REACTIVE PROTEIN 0.08 MG/DL (0.00-0.50)
[2016-09-13 15:35] LABS: ERYTHROCYTE SEDIMENTATION RATE 7 MM/HR (0-30)
[2016-09-13 15:50] LABS: SQUAMOUS EPITHELIAL CELL,UR 0-2 /HPF
[2016-09-14 03:29] LABS: LYME AB G M < 0.01 Index (0.00-0.89)
[2016-09-14 06:58] LABS: LYME AB INTERP Negative (Negative)
[2016-09-14 07:27] LABS: TULAREMIA ANTIBODY <1:20
[2016-09-14 14:41] LABS: EHRLICHIA CHAFFEENSIS G ABY <1:16 (<1:16)
[2016-09-15 07:28] LABS: IGG ROCKY MOUNTAIN SPOTTED FEV <1:16 (<1:16); IGM ROCKY MOUNTAIN SPOTTED FEV <1:10 (<1:10)
== END ==
LOC: LAB 14:50
PROVIDERS: ATTEND Physician Assistant
DX: M79.1 Myalgia (principal); R07.89 Other chest pain
CPT/HCPCS: 36415; 80053; 81000; 82550; 83605; 85025; 85652; 86141; 86618; 86666; 86668; 86757; 87088

== ENCOUNTER 2016-09-19 13:54 | Observation (INO) | payer BC ==
[~2016-09-19] VITALS: Ht 188 cm; Wt 101.9 kg
[2016-09-19 14:00] VITALS: BP 140/83
[2016-09-19] MEDS ORDERED: ONDANSETRON 4 MG/2 ML (SDV) Z0FRAN IVP PRN (14:00)
[2016-09-19] MEDS ORDERED: fentaNYL INJECTION 100 MCG/2 ML AMP IVP PRN (14:00)
[2016-09-19] MEDS ORDERED: ALPRAZolam 0.25 MG (XANAX) TAB PO PRN (14:00)
[2016-09-19] MEDS ORDERED: ACETAMINOPHEN 500 MG TAB (TYLENOL) PO PRN (14:00)
[2016-09-19] MEDS ORDERED: CATHETER FLUSH 10 ML SYR IV PRN (14:30)
[2016-09-19] MEDS ORDERED: SULF-11 PO (14:41)
[2016-09-19] MEDS ORDERED: NAPR1TAB21 PO (14:41)
[2016-09-19] MEDS: HYDROcodone/APAP 5 MG/325 MG (LORTAB) TAB PO PRN (15:01)
[2016-09-19] MEDS: NS IV 1000 ML 1,000 ML IV SCH ×2 (15:02→22:30)
[2016-09-19] MEDS ORDERED: LEFL20TA18 PO (15:04)
[2016-09-19] MEDS ORDERED: LEVO500T80 PO (15:04)
[2016-09-19] MEDS ORDERED: IBUP-30 PO (15:09)
[2016-09-19 15:20] LABS: BILIRUBIN,URINE NEGATIVE (NEGATIVE); KETONES,URINE NEGATIVE (NEGATIVE); LEUKOCYTE ESTERASE ,URINE 1+ (NEGATIVE); NITRITE,URINE NEGATIVE (NEGATIVE); PH,URINE 5 (5-9); PROTEIN,URINE 1+ (NEGATIVE); UROBILINOGEN,URINE NORMAL (NORMAL)
[2016-09-19 15:46] LABS: BASOPHILS % (AUTO) 1 % (0-10); EOSINOPHILS # (AUTO) 0.1 10^3/uL (0.0-0.3); EOSINOPHILS % (AUTO) 2 % (0-10); LYMPHOCYTES # (AUTO) 1.6 X 10^3 (1.0-4.0); LYMPHOCYTES % (AUTO) 25 % (12-44); MEAN CORPUSCULAR HEMOGLOBIN 29 PG (25-34); MEAN CORPUSCULAR HGB CONC 34 G/DL (32-36); MEAN CORPUSCULAR VOLUME 86 FL (80-99); MEAN PLATELET VOLUME 10.6 FL (7.4-10.4); MONOCYTES # (AUTO) 0.9 X 10^3 (0.0-1.0); MONOCYTES % (AUTO) 13 % (0-12); NEUTROPHILS # (AUTO) 3.9 X 10^3 (1.8-7.8); NEUTROPHILS % (AUTO) 60 % (42-75); PLATELET COUNT 170 10^3/uL (130-400); RED BLOOD COUNT 4.89 10^6/uL (4.35-5.85); RED CELL DISTRIBUTION WIDTH 13.2 % (10.0-14.5); WHITE BLOOD COUNT 6.5 10^3/uL (4.3-11.0)
--- NOTE | 2016-09-19 15:52 | Diagnostic Imaging Report ---
EXAMINATION: PA and lateral views of the chest. INDICATION: Chest pain. FINDINGS: The lungs are clear of focal infiltrate. There is an 8 mm nodular density seen in the right middle lobe. The left lung is clear. Heart size is normal. No effusion or pneumothorax. The mediastinum and best appear unremarkable. IMPRESSION: There is an 8 mm nodule in the right middle lobe. Better evaluation with CT scan of the chest is recommended. Report was faxed to the office of Dr. Bhumi Martel at 3:50 p.m., by regi. Dictated by: Dictated on workstation # [id number]
[2016-09-19 16:00] VITALS: BP 132/80
[2016-09-19 16:06] LABS: ALANINE AMINOTRANSFERASE 24 U/L (0-55); ALBUMIN 3.9 GM/DL (3.2-4.5); AMYLASE 50 U/L (25-125); ANION GAP 6 MMOL/L (5-14); ASPARTATE AMINO TRANSFERASE 24 U/L (5-34); BILIRUBIN,TOTAL 0.8 MG/DL (0.1-1.0); CARBON DIOXIDE 24 MMOL/L (21-32); CHLORIDE 108 MMOL/L (98-107); CREATINE KINASE 107 U/L (30-200); CREATININE SERUM 0.83 MG/DL (0.60-1.30); GFR ESTIMATED > 60; GLUCOSE 97 MG/DL (70-105); LIPASE 19 U/L (8-78); POTASSIUM 4.2 MMOL/L (3.6-5.0); SODIUM 138 MMOL/L (135-145); TOTAL PROTEIN 6.5 GM/DL (6.4-8.2); hs C REACTIVE PROTEIN 0.05 MG/DL (0.00-0.50)
[2016-09-19 16:12] LABS: TROPONIN I < 0.30 NG/ML (<0.30)
[2016-09-19 16:15] LABS: ERYTHROCYTE SEDIMENTATION RATE 7 MM/HR (0-30)
[2016-09-19] MEDS ORDERED: IBUPROFEN TABLET 200 MG TAB PO PRN (16:15)
--- NOTE | 2016-09-19 16:21 | Diagnostic Imaging Report ---
EXAMINATION: Supine and upright views of the abdomen. INDICATION: Abdominal pain. FINDINGS: There is no pneumoperitoneum. No significantly dilated bowel loops or air/fluid levels are seen. There are moderate to large amounts of fecal material noted in the right colon. Calcification in the left side of the pelvis is likely a phlebolith. There is scoliosis, convex to the right, in the mid lumbar spine. IMPRESSION: Moderate amounts of fecal material in the right colon are seen. Dictated by: Dictated on workstation # [id number]
[2016-09-19] MEDS ORDERED: PIPERACILLIN SODIUM/TAZOBACTAM 4.5 GM in NS (IVPB) 100 ML IV SCH (16:30)
[2016-09-19 16:38] LABS: BLOOD UREA NITROGEN 21 MG/DL (7-18); BUN/CREATININE RATIO 25
[2016-09-19] MEDS ORDERED: PIPERACILLIN/TAZOBACTAM 4.5 GM/NS 100 ML IV NR ×2 (16:45)
[2016-09-19] MEDS ORDERED: PATIENT MAY USE OWN MEDS, ALL MC SCH (16:45)
[2016-09-19] MEDS ORDERED: OMEGA 3 (FISH OIL) 1000 MG CAP PO SCH (17:00)
[2016-09-19] MEDS ORDERED: NON-FORMULARY MEDICATION 1 EA EA (Tamsulosin HCl 0.4 MG) PO SCH (18:00)
[2016-09-19] MEDS ORDERED: TAMSULOSIN 0.4 MG CAPSULE PO SCH (18:00)
[2016-09-19] MEDS ORDERED: ALFUZOSIN HCL 10 MG TAB (UROXATRAL) PO SCH (18:00)
[2016-09-19] MEDS: methylPREDNISolone 40 MG/ML (Solu-MEDROL) VIAL IV SCH ×2 (18:31→23:59)
[2016-09-19 19:58] VITALS: BP 126/76
[2016-09-19] MEDS: VIMOVO PO SCH (20:20)
[2016-09-19] MEDS: LOVAZA 1 GM PO SCH (20:22)
[2016-09-19] MEDS ORDERED: FINASTERIDE (PROSCAR) 5 MG TAB PO SCH (21:00)
[2016-09-19] MEDS ORDERED: ALPRAZolam 0.25 MG (XANAX) TAB PO SCH (21:00)
[2016-09-19] MEDS ORDERED: NON-FORMULARY MEDICATION 1 EA EA (Finasteride (Proscar) 5 MG) PO SCH (21:00)
[2016-09-19] MEDS ORDERED: SMZ TMP PO SCH (21:00)
[2016-09-19] MEDS ORDERED: OMEGA-3 ACID ETHYL ESTERS 1 GM (LOVAZA) NON-FORMULARY PO SCH (21:00)
[2016-09-19] MEDS ORDERED: NON-FORMULARY MEDICATION 1 EA EA (Sulfamethoxazole/Trimethoprim (Sulfamethoxazole-Tmp Ss T PO SCH (21:00)
[2016-09-19] MEDS ORDERED: TRIM/SULFAMETH 160/800 (SEPTRA DS) TAB PO SCH (21:00)
[2016-09-19] MEDS: PIPERACILLIN/TAZOBACTAM 4.5 GM/NS 100 ML IVPB IV SCH ×2 (22:30)
[2016-09-19 23:40] VITALS: BP 141/80
[2016-09-20 03:45] VITALS: BP 138/82
[2016-09-20 05:58] LABS: BASOPHILS % (AUTO) 0 % (0-10); EOSINOPHILS % (AUTO) 0 % (0-10); LYMPHOCYTES # (AUTO) 0.7 X 10^3 (1.0-4.0); LYMPHOCYTES % (AUTO) 8 % (12-44); MEAN CORPUSCULAR HEMOGLOBIN 29 PG (25-34); MEAN CORPUSCULAR HGB CONC 34 G/DL (32-36); MEAN CORPUSCULAR VOLUME 86 FL (80-99); MEAN PLATELET VOLUME 10.6 FL (7.4-10.4); MONOCYTES # (AUTO) 0.1 X 10^3 (0.0-1.0); MONOCYTES % (AUTO) 1 % (0-12); NEUTROPHILS # (AUTO) 8.4 X 10^3 (1.8-7.8); NEUTROPHILS % (AUTO) 91 % (42-75); PLATELET COUNT 178 10^3/uL (130-400); RED BLOOD COUNT 4.93 10^6/uL (4.35-5.85); RED CELL DISTRIBUTION WIDTH 13.2 % (10.0-14.5); WHITE BLOOD COUNT 9.3 10^3/uL (4.3-11.0)
[2016-09-20] MEDS: NS IV 1000 ML 1,000 ML IV SCH (06:04)
[2016-09-20] MEDS: PIPERACILLIN/TAZOBACTAM 4.5 GM/NS 100 ML IVPB IV SCH ×2 (06:04)
[2016-09-20] MEDS: methylPREDNISolone 40 MG/ML (Solu-MEDROL) VIAL IV SCH ×2 (06:04→12:38)
[2016-09-20 06:16] LABS: BAND NEUTROPHILS 0 %; BASOPHILS % (MANUAL) 0 %; EOSINOPHILS % (MANUAL) 0 %; LYMPHOCYTES % (MANUAL) 8 %; NEUTROPHILS % (MANUAL) 83 %
[2016-09-20 06:17] LABS: POIKILOCYTOSIS SLIGHT; REACTIVE LYMPHOCYTES 7 %
[2016-09-20 06:20] LABS: ALANINE AMINOTRANSFERASE 22 U/L (0-55); ALBUMIN 3.8 GM/DL (3.2-4.5); ANION GAP 7 MMOL/L (5-14); ASPARTATE AMINO TRANSFERASE 24 U/L (5-34); BILIRUBIN,TOTAL 0.8 MG/DL (0.1-1.0); BLOOD UREA NITROGEN 19 MG/DL (7-18); BUN/CREATININE RATIO 23; CARBON DIOXIDE 23 MMOL/L (21-32); CHLORIDE 110 MMOL/L (98-107); CREATININE SERUM 0.82 MG/DL (0.60-1.30); GFR ESTIMATED > 60; GLUCOSE 161 MG/DL (70-105); POTASSIUM 4.3 MMOL/L (3.6-5.0); SODIUM 140 MMOL/L (135-145); TOTAL PROTEIN 6.4 GM/DL (6.4-8.2)
[2016-09-20] MEDS ORDERED: MULTIVIT W/MINERALS TAB (THERAGRAN M) PO SCH (07:00)
[2016-09-20] MEDS: HYDROcodone/APAP 5 MG/325 MG (LORTAB) TAB PO PRN (08:03)
[2016-09-20] MEDS: VIMOVO PO SCH (08:05)
[2016-09-20] MEDS: LOVAZA 1 GM PO SCH (08:07)
--- NOTE | 2016-09-20 08:31 | CONSULTATION REPORT ---
DATE OF ADMISSION: ADMITTING PHYSICIAN: Dr. Martel ATTENDING PRIMARY CARE PHYSICIAN: Dr. Celestin. Mr. Francisco Guerra is a 65-year-old male who we have seen before in the past. This gentleman underwent a screening colonoscopy in July 2016. He reports that in the past approximate week he has not felt well and has had issues with fatigue, headache, joint pain, as well as development of a chest tightness and pain, as well as diffuse abdominal pain. He underwent laboratory work approximately 5 days ago, which showed a normal white count; however, he was found in the urinary tract infection. He reports that over time his symptoms have worsened and he has become dehydrated. This gentleman also has a history of rheumatoid arthritis and is on Nela. He also has had abdominal pain which is diffuse with no specific locations; however, this appears to be worse in the suprapubic region. Upon initial examination he does appear to have a urinary tract infection and urosepsis. Also, after looking at a recent chest x-ray and abdominal x-ray there are no acute abnormalities detected at this time. PAST MEDICAL HISTORY: 1. Degenerative joint disease. 2. Rheumatoid arthritis. 3. Hypercholesterolemia. 4. BPH. PAST SURGERIES: 1. Left total knee arthroplasty 2014. 2. L3-L5 discectomy. 3. Left orchiectomy 2013 for benign disease.. ALLERGIES: No known drug allergies. MEDICATIONS: 1. Vimovo 500/20 mg daily. 2. Tamsulosin 0.4 mg daily. 3. Bactrim daily. 4. Finasteride 5 mg daily. 5. Calcium 2 mg daily. 6. Citalopram 20 mg daily. 7. [place]-3 fatty acids daily. 8. BuSpar 5 mg daily. 9. Alprazolam 0.25 mg daily. 10. Nela 40 milligrams q.2 weeks. 11. Leflunomide 20 mg daily. SOCIAL HISTORY: Negative smoke. Negative alcohol. FAMILY HISTORY: Brother myocardial infarction age 29. VITAL SIGNS: Temperature 98.8, blood pressure 140/83, pulse 81, respirations 20, pulse oximetry 95% on room air. REVIEW OF SYSTEMS: This is a well-nourished male, currently guarded secondary to the discomfort throughout his joints neck, chest and abdomen. He is not experiencing any shortness of breath nor difficulty breathing. He does express a chest tightness; however, no air hunger. No cough or sputum production. No nausea, vomiting, no diarrhea, constipation. No red blood per rectum. No dark tarry stools. No fever, chills, no recent inadvertent weight loss. He does report that he has been having some minor chills here starting today. All other review of systems negative. PHYSICAL EXAMINATION: CHEST: Clear, good breath sounds bilaterally. HEART: Regular. EXTREMITIES: No lower extremity edema. Negative Homans sign. HEENT: No scleral icterus. No cervical lymphadenopathy. ABDOMEN: Soft, nondistended. There is diffuse pain throughout all 4 quadrants of the abdomen which is more severe in the suprapubic region with voluntary guarding. No rebound. SKIN: Warm and dry. ASSESSMENT AND PLAN: 65-year-old male with urosepsis. At this time his abdominal x-ray appears to be normal and he may have abdominal pain secondary to the bladder infection as well as ileus due to the sepsis. We will continue with conservative management with IV fluids, IV antibiotics, as well as IV hydration. We will continue to monitor his progress. Job ID: [id number] Dictated Date: 09/19/2016 15:03:28 Machine Wedger Date: 09/20/2016 08:12:12/micah
[2016-09-20 08:52] VITALS: BP 148/83
[2016-09-20] MEDS ORDERED: busPIRone 5 MG (BUSPAR) TAB PO SCH (09:00)
[2016-09-20] MEDS ORDERED: MULTIVITAMIN PO SCH (09:00)
[2016-09-20] MEDS ORDERED: NON-FORMULARY MEDICATION 1 EA EA (Escitalopram Oxalate (Lexapro) 20 MG) PO SCH (09:00)
[2016-09-20] MEDS ORDERED: ESCITALOPRAM 20 MG (LEXAPRO) TABLET NON-FORMULARY PO SCH (09:00)
[2016-09-20] MEDS ORDERED: VITAMIN D3 1,000 UNITS (CHOLECALCIFEROL) TABLET PO SCH (09:00)
[2016-09-20] MEDS ORDERED: NON-FORMULARY MEDICATION 1 EA EA (Pitavastatin Calcium (Livalo) 2 MG) PO SCH (09:00)
[2016-09-20] MEDS ORDERED: ATORVASTATIN 10 MG (LIPITOR) TABLET PO SCH (09:00)
--- NOTE | 2016-09-20 10:31 | Short Stay Summary-Hospitalist ---
HPI History of Present Illness: HPI/Chief Complaint CC: Severe muscle pain HPI: This is a 65[address]WM pt of Dr. Celestin that I directly admitted form his office due to severe muscle pain and inability to ambulate. UTI dx 09/13/16, pt was started on Levaquin and received 1L IVF on 09/13/16. Pt continued to worsen to point unable to go on, so he was admitted and placed in observation. In depth work up was completed and resulted in no source of pain. He is being treated for seronegative RA and Sjogren's with Humira and other immunosuppressive meds per Dr. Govea. Inflammation markers remain negative. Pt had a dizzy spell three weeks ago due to Humira, so Dr. Govea told pt to stop it. I conferred with Dr. Sabi morales and Dr. Govea in depth this morning and relayed the entire workup. Dr. Govea explained that his pain is out of proportion to physical exam consistently. Dr. Leiva saw pt for abdominal pain and found no issue. Urine cx negative. PT Review: Pt stated that he sometimes thinks its all in his head? Thinks he has bladder ca Pt lightened up throughout ambulating. 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 Araceli will suggest to pt drinking vinegar water to help with joint pain Patient Interview: Pt was informed that I talked to Dr. Celestin and Dr. Govea and his pain is a bit mysterious. Repeat urine negative. CXR showed a nodule but not an issue. Labs discussed and are fine. It is possible that being out in the heat flared his Sjogren's. It will take time for him to get better, but since there were no big lab or imaging findings he will DC soon. Pt's asked about his tick panel, it was negative. Urine cx was negative as well. Levaquin and UTI were discussed. Pt is receiving steroids through IV Pt was informed of Dr. Leiva's assessment Pt was working with PT upon interview. Pt's states that he generally has good posture, but is very hunched over today. Pt is also curious about why he is hoarse. Pt looks much better as he continues to walk, but pt was having a difficult time standing up with a walker at first. Pt's states that he generally does well with his arthritis pain and does not tend to act the way he has been today. Pt's states that he is generally very active in the morning. Pt was able to walk into the hospital and did not need to use a wheelchair Physical exam stable Pt's asked if Dr. Estrada could be consulted and I can accommodate this Possible killed therapy was discussed Scribed by Kenia Nguyen under the direct supervision of Dr. Vidal. Source: patient, family Exam Limitations: no limitations Date Seen 09/20/16 Time Seen by Provider: 09:30 Attending Physician Bhumi Vidal DO PCP Dez Celestin MD Referring Physician Date of Admission Sep 19, 2016 at 14:05 Home Medications & Allergies Home Medications Reviewed patient Home Medication Reconciliation Form Allergies Allergies Coded Allergies No Known Drug Allergies (Verified09/19/16) Past Wxseiki-Ufktum-Alhxlt Hx Patient Social History Marrital Status: Employed/Student: employed ([employer]) Alcohol Use: Denies Use Recreational Drug Use: No Smoking Status: Never a Smoker Physical Abuse Screen: No Sexual Abuse: No Recent Foreign Travel: No Contact w/other who traveled: No Recent Hopitalizations: No Recent Infectious Disease Expo: No Seasonal Allergies Seasonal Allergies: No Surgeries HX Surgeries: Yes (Left TKR, back sx, orchiectomy, hand joint fusion, ) Surgeries: Appendectomy, Testicular Respiratory Hx Respiratory Disorders: Yes Cardiovascular Hx Cardiovascular Disorders: No Neurological Hx Neurological Disorders: No Reproductive System Hx Reproductive Disorders: No Genitourinary Hx Genitourinary Disorders: Yes Genitourinary Disorders: Benign Prostatic Hyperpl, Neurogenic Bladder Gastrointestinal Hx Gastrointestinal Disorders: No Musculoskeletal Hx Musculoskeletal Disorders: Yes Musculoskeletal Disorders: Arthritis, Rheumatoid Arthritis, Chronic Back Pain Endocrine Hx Endocrine Disorders: No HEENT HX ENT Disorders: No Cancer Hx Cancer: No Psychosocial Hx Psychiatric Problems: No Behavioral Health Disorders: Anxiety, Depression Integumentary HX Skin/Integumentary Disorder: No Blood Transfusions Hx Blood Disorders: No Family Medical History Family Hx: Arthritis 19 FATHER 19 MOTHER G8 SISTER Dementia 19 FATHER Hypercholesterolemia 19 FATHER 19 MOTHER Myocardial infarction G8 BROTHER Review of Systems Constitutional: see HPI, dizziness, malaise, weakness EENTM: no symptoms reported Respiratory: no symptoms reported Cardiovascular: no symptoms reported Gastrointestinal: nausea Genitourinary: decreased output, hesitancy Musculoskeletal: back pain, joint pain, muscle pain, muscle stiffness, muscle cramps, muscle twitching, muscle weakness Skin: no symptoms reported Psychiatric/Neurological: No Symptoms Reported All Other Systems Reviewed Negative Unless Noted: Yes Physical Exam Physical Exam Vital Signs Vital Sign - Last 12Hours 09/19/16 14:00 Temp 98.8 Pulse 81 Resp 20 B/P (MAP) 140/83 Pulse Ox 95 O2 Delivery Room Air Capillary Refill : General Appearance: No Apparent Distress, WD/WN, Chronically ill, Obese Eyes: Bilateral Eye Normal Inspection, Bilateral Eye PERRL HEENT: PERRL/EOMI, Normal ENT Inspection, Pharynx Normal Neck: Full Range of Motion, Normal Inspection, Non Tender, Supple, Carotid Bruit Respiratory: Chest Non Tender, Lungs Clear, Normal Breath Sounds, No Accessory Muscle Use, No Respiratory Distress Cardiovascular: Regular Rate, Rhythm, No Edema, No Gallop, No JVD, No Murmur, Normal Peripheral Pulses Gastrointestinal: Normal Bowel Sounds, No Organomegaly, No Pulsatile Mass, Non Tender, Soft Back: Normal Inspection, No CVA Tenderness, No Vertebral Tenderness Extremity: Normal Capillary Refill, Normal Inspection, Normal Range of Motion, Non Tender, No Calf Tenderness, No Pedal Edema Neurologic/Psychiatric: Alert, Oriented x3, No Motor/Sensory Deficits, Depressed Affect, Other (anxious) Skin: Normal Color, Warm/Dry Lymphatic: No Adenopathy Results Results/Procedures Lab Laboratory Tests 09/19/16 15:35 09/20/16 05:33 Short Stay Diagnosis Discharge Diagnosis-Short Stay Admission Diagnosis Assessment: Severe muscle pain and weakness and inability to ambulate 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 Estrada and he will see the patient Follow up with Dr. Govea Continue steroids as out-pt Bladder scan revealed 200cc so no significant retention noted DC abx Clinical Quality Measures DVT/VTE Risk/Contraindication: Risk Factor Score Per Nursin RFS Level Per Nursing on Admit: 4+=Very High BHUMI VIDAL DO Sep 20, 2016 10:31
[2016-09-20] MEDS ORDERED: PRED10TA22 PO (10:34)
--- NOTE | 2016-09-20 10:43 | Physical Therapy Evaluation ---
PT Evaluation-General Medical Diagnosis Admission Date Sep 19, 2016 at 14:05 Medical Diagnosis: Myositis Onset Date: Sep 19, 2016 Therapy Diagnosis Therapy Diagnosis: debility Height/Weight Height (Feet): 6 Height (Inches): 2.00 Weight (Pounds): 224 Weight (Ounces): 9.0 Precautions Precautions/Isolations: Standard Precautions Referral Physician: Delonte Reason for Referral: Evaluation/Treatment Medical History Pertinent Medical History: Rheumatoid Arthritis Additional Medical History DJD; left TKR Current History increase joint pain/urosepsis Reviewed History: Yes Social History Home: Single Level Current Living Status: Spouse Prior/Core FIM Prior Level of Function Functional [place] Measure 0=Not Assessed/NA 4=Minimal Assistance 1=Total Assistance 5=Supervision or Setup 2=Maximal Assistance 6=Modified [place] 3=Moderate Assistance 7=Complete [place] Bed Mobility: 7 Transfers (B,C,W/C) (FIM): 7 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 Pain Numeric Pain Scale: 10-Worst Possible Pain Location: Soft Tissue Location Body Site: Generalized Pain Description: Sharp Objective Patient Orientation: Normal For Age Problem Solving: Good ROM/Strength ROM Lower Extremities bilateral LE WNL Strenght Lower Extremities bilateral LE WNL (however, noted muscle wasting) Integumentary/Posture Integumentary refer to nursing notes Bowel Incontinence: No Bladder Incontinence: No Posture WNL Neuromuscular (Tone, Coordination, Reflexes) slightly diminished coordination initially, improved with mobility/ambulation Sensory Vision: Functional Hearing: Functional Sensation Right Lower Extremit: Intact Sensation Left Lower Extremity: Intact Transfers Functional [place] Measure 0=Not Assessed/NA 4=Minimal Assistance 1=Total Assistance 5=Supervision or Setup 2=Maximal Assistance 6=Modified [place] 3=Moderate Assistance 7=Complete [place] Transfers (B, C, W/C) (FIM): 4 Scootin Rollin Supine to/from Sit: 7 Sit to/from Stand: 4 for safety with use of gait belt/patient will "throw" himself backward impulsively Gait Mode of Locomotion: Walk Anticipated Mode of Locomotion: Walk Gait (FIM): 5 Distance (FIM): 3=150 ft Distance: 400' Gait Level of Assist: 5 Gait Assistive Device: FWW Comments/Gait Description slightly unsteady with self correction Balance Sitting Static: Fair Sitting Dynamic: Fair Standing Static: Fair Standing Dynamic: Fair Assessment/Needs 65 y.o. male, will benefit from short term skilled PT to address safe functional mobility to ensure safe return to home with spouse. Rehab Potential: Good PT Women'S Activities Adviser Goals Usp Goals PT Women'S Activities Adviser Goals Time Frame: Sep 24, 2016 Transfers (B,C,W/C) (FIM): 6 Gait (FIM): 6 Gait distance (FIM): 3=150 ft Gait Level of Assist: 6 Gait Assistive Device: FWW PT Plan Problem List Problem List: Functional Strength, Safety, Balance, Gait, Transfer Treatment/Plan Treatment Plan: Continue Plan of Care Treatment Plan: Bed Mobility, Education, Functional Activity [place], Functional Strength, Gait, Safety, Therapeutic Exercise, Transfers Treatment Duration: Sep 24, 2016 Frequency: Twice Daily Estimated Hrs Per Day: .25 hour per day Patient and/or Family Agrees t: Yes Safety Risks/Education Patient Education: Gait Training, Safety Issues Teaching Recipient: Patient, Family Teaching Methods: Demonstration, Discussion Response to Teaching: Verbalize Understanding, Return Demonstration Discharge Recommendations Therapy D/C Recommendations: Home w/ Family Support Time/GCodes Time In: 930 Time Out: 950 Total Billed Treatment Time: 20 Total Billed Treatment 1 visit EVModC 20 min G Codes Necessary: MORGAN Cevallos PT Sep 20, 2016 10:43
--- NOTE | 2016-09-20 11:54 | CONSULTATION REPORT ---
DATE OF CONSULTATION: 09/20/2016 ATTENDING PHYSICIAN: Dr. Martel. SUMMARY: After reviewing the patient's records in the hospital and interviewing him, this is 65-year-old white man known to me with a previous history of prostatitis, was maintained well on Flomax, Proscar and Bactrim daily. He is admitted by Dr. Martel because of bilateral groin pain. He is also on IV antibiotics. His pain does not to sound to me or to him related to his prostatitis. Distribution and quantity urrutia, could be related to his joints or back or bone issues. 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 He is on IV antibiotic. He had a postvoid residual, bladder scan of 125. IMPRESSION: Bilateral groin pain with a history of prostatitis, doubt the pain is related to prostatitis. PLAN: Dismiss and follow-up usual at the office. Job ID: [id number] Dictated Date: 09/20/2016 11:23:23 Process Consultant Date: 09/20/2016 11:49:13/neal
--- NOTE | 2016-09-20 12:56 | Physical Therapy Daily Note ---
PT Daily Note-Current Subjective Patient states he is feeling better after pain medication issued. Agrees to PT. Pain Numeric Pain Scale: 3 Location: Soft Tissue Location Body Site: Generalized Pain Description: Ache Mental Status Patient Orientation: Normal For Age Transfers Functional [place] Measure 0=Not Assessed/NA 4=Minimal Assistance 1=Total Assistance 5=Supervision or Setup 2=Maximal Assistance 6=Modified [place] 3=Moderate Assistance 7=Complete IndependenceIRFPAI Quality Coding Scale 6 Independent with activity with or without an assistive device 5 Patient requires set up or clean up by helper. Patient completes activity by themselves 4 Supervision or touching assist (CGA). [place] provide cues , steadying assist 3 The helper provides less than half the effort to complete the activity 2 The helper provides more than half the effort to complete the activity 1 Dependent. The helper does all the effort to complete an activity 7 Patient refused to complete or attempt activity 9 The patient did not perform the activity before the current illness or injury 88 Not attempted due to Medical conditions or safety concerns Transfers (B, C, W/C) (FIM): 7 Scootin Rollin Supine to/from Sit: 7 Sit to/from Stand: 7 Gait Training Gait (FIM): 6 Distance (FIM): 3=150 ft Distance: 400' Gait Level of Assist: 6 Gait Assistive Device: FWW erect, normal gait sequence Assessment Patient to dismiss to home today per Patient and spouse both feel he is able to safely return to home. PT Correction Goals Gis Engineer Goals PT Gis Engineer Goals Time Frame: Sep 24, 2016 Transfers (B,C,W/C) (FIM): 6 Gait (FIM): 6 Gait distance (FIM): 3=150 ft Gait Level of Assist: 6 Gait Assistive Device: FWW PT Plan Treatment/Plan Treatment Plan: Discontinue PT, goals met Treatment Plan: Bed Mobility, Education, Functional Activity [place], Functional Strength, Gait, Safety, Therapeutic Exercise, Transfers Treatment Duration: Sep 24, 2016 Frequency: Twice Daily Estimated Hrs Per Day: .25 hour per day Patient and/or Family Agrees t: Yes Time/GCodes Time In: 1145 Time Out: 1200 Total Billed Treatment Time: 15 Total Billed Treatment 1 visit GT 15 min G Codes Necessary: No MORGAN SAN PT Sep 20, 2016 12:56
--- OUTSIDE RECORDS SUMMARY | 2016-09-26 22:15 | XMS REPORT | Clinical Summary ---
Author Author [facility] Organization [facility] Address Unknown Phone Unavailable Care Team Providers Care Desk Monitor Name Role Phone PCP Unavailable Source Comments Some departments are not documenting in the electronic medical record. If you do not see the information that you expected, contact Release of Information in the Health Information Management department at [phone] for further assistance in locating additional records.[facility] Allergies No Known Allergies Current Medications Prescription Sig. [...] Types Packs/Day Years Used Date Never Smoker Sex Assigned at Date Recorded Not on file Last Filed Vital Signs Vital Sign Reading Time Taken Blood Pressure 140/70 09/06/2015 9:43 AM CDT Pulse 77 09/06/2015 9:43 AM CDT Temperature 36.9 C (98.4 F) 09/06/2015 9:43 AM CDT Respiratory Rate 16 09/06/2015 9:43 AM CDT Oxygen Saturation 98% 09/06/2015 9:43 AM CDT Inhaled Oxygen - - Concentration Weight 103 kg (227 lb) 09/06/2015 9:43 AM CDT Height 188 cm (6' 2") 09/06/2015 9:43 AM CDT Body Mass Index 29.15 09/06/2015 9:43 AM CDT Plan of Treatment Health Maintenance Due Date Last Done Comments HEPATITIS C SCREENING 1950 PHYSICAL (COMPREHENSIVE) 11/12/1958 EXAM PERTUSSIS VACCINE 11/12/1962 TETANUS VACCINE 11/12/1968 COLORECTAL CANCER 11/12/2001 SCREENING SHINGLES VACCINE 2011 INFLUENZA VACCINE 11/02/2016 Results Not on filefrom Last 3 Months
--- OUTSIDE RECORDS SUMMARY | 2016-09-26 22:16 | XMS REPORT | Continuity of Care Document ---
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 05/16/2015 LUCAS MACIAS MD [...] 02/28/2016 LUCAS MACIAS MD Ot Z79.899 OTHER [facility] (CURRENT) DRUG THERAPY 02/29/2016 LEANDER GRIER APRN [...] 07/11/2016 THOMAS BROOKS MD Ot 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 07/11/2016 THOMAS BROOKS MD [...] 07/12/2016 THOMAS BROOKS MD Ot 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 07/12/2016 THOMAS BROOKS MD Ot Z96.652 PRESENCE OF LEFT ARTIFICIAL KNEE JOINT 07/17/2016 THOMAS BROOKS MD Ot E78.00 PURE HYPERCHOLESTEROLEMIA, UNSPECIFIED 07/17/2016 THOMAS BROOKS MD Ot K64.1 SECOND DEGREE HEMORRHOIDS 07/17/2016 THOMAS BROOKS MD Ot M06.9 RHEUMATOID ARTHRITIS, UNSPECIFIED 07/17/2016 THOMAS BROOKS MD Ot N40.0 BENIGN PROSTATIC HYPERPLASIA WITHOUT LOW 07/17/2016 THOMAS BROOKS MD Ot Z12.11 ENCOUNTER FOR SCREENING FOR MALIGNANT NE 07/17/2016 THOMAS BROOKS MD Ot Z79.899 OTHER [facility] (CURRENT) DRUG THERAPY 07/17/2016 THOMAS BROOKS MD Ot Z96.652 PRESENCE OF LEFT ARTIFICIAL KNEE JOINT 07/18/2016 THOMAS BROOKS MD Ot E78.00 PURE HYPERCHOLESTEROLEMIA, UNSPECIFIED 07/18/2016 THOMAS BROOKS MD Ot K64.1 SECOND DEGREE HEMORRHOIDS 07/18/2016 THOMAS BROOKS MD Ot M06.9 RHEUMATOID ARTHRITIS, UNSPECIFIED 07/18/2016 THOMAS BROOKS MD Ot N40.0 BENIGN PROSTATIC HYPERPLASIA WITHOUT LOW 07/18/2016 THOMAS BROOKS MD Ot Z12.11 ENCOUNTER FOR SCREENING FOR MALIGNANT NE 07/18/2016 THOMAS BROOKS MD Ot Z79.899 OTHER [facility] (CURRENT) DRUG THERAPY 07/18/2016 THOMAS BROOKS MD Ot Z96.652 PRESENCE OF LEFT ARTIFICIAL KNEE JOINT 09/11/2016 JENNA KRUSE MD Ot M06.88 OTHER SPECIFIED RHEUMATOID ARTHRITIS, VE 09/11/2016 JENNA KRUSE MD Ot R07.9 CHEST PAIN, UNSPECIFIED 09/11/2016 JENNA KRUSE MD Ot Z90.49 ACQUIRED ABSENCE OF OTHER SPECIFIED PART 09/11/2016 JENNA KRUSE MD Ot Z90.79 ACQUIRED ABSENCE OF OTHER GENITAL ORGAN( 09/11/2016 JENNA KRUSE MD Ot Z96.652 PRESENCE OF LEFT ARTIFICIAL KNEE JOINT 09/16/2016 JENNA KRUSE MD Ot M06.88 OTHER SPECIFIED RHEUMATOID ARTHRITIS, VE 09/16/2016 JENNA KRUSE MD Ot R07.9 CHEST PAIN, UNSPECIFIED 09/16/2016 JENNA KRUSE MD Ot Z90.49 ACQUIRED ABSENCE OF OTHER SPECIFIED PART 09/16/2016 JENNA KRUSE MD Ot Z90.79 ACQUIRED ABSENCE OF OTHER GENITAL ORGAN( 09/16/2016 JENNA KRUSE MD Ot Z96.652 PRESENCE OF LEFT ARTIFICIAL KNEE JOINT 09/20/2016 RONDA VÁZQUEZ Ot E86.9 VOLUME DEPLETION, UNSPECIFIED 09/20/2016 RONDA VÁZQUEZ Ot R51 HEADACHE 09/20/2016 VIDAL DO, ADILENE Ot E78.00 PURE HYPERCHOLESTEROLEMIA, UNSPECIFIED 09/20/2016 VIDAL DO, ADILENE Ot 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 09/20/2016 VIDAL DO, ADILENE Ot M35.00 SICCA SYNDROME, UNSPECIFIED 09/20/2016 VIDAL DO, ADILENE Ot M60.9 MYOSITIS, UNSPECIFIED 09/20/2016 VIDAL DO, ADILENE Ot N39.0 URINARY TRACT INFECTION, SITE NOT SPECIF 09/20/2016 VIDAL DO, ADILENE Ot N40.0 BENIGN PROSTATIC HYPERPLASIA WITHOUT LOW 09/20/2016 VIDAL DO, ADILENE Ot R91.1 SOLITARY PULMONARY NODULE 09/20/2016 VIDAL DO, ADILENE Ot Z79.899 OTHER [facility] (CURRENT) DRUG THERAPY 09/20/2016 VIDAL DO, ADILENE Ot Z90.79 ACQUIRED ABSENCE OF OTHER GENITAL ORGAN( 09/20/2016 VIDAL DO, ADILENE Ot Z96.652 PRESENCE OF LEFT ARTIFICIAL KNEE JOINT 09/20/2016 VIDAL DO, ADILENE Ot E78.00 PURE HYPERCHOLESTEROLEMIA, UNSPECIFIED 09/20/2016 VIDAL DO, ADILENE Ot 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 09/20/2016 VIDAL DO, ADILENE Ot M35.00 SICCA SYNDROME, UNSPECIFIED 09/20/2016 VIDAL DO, ADILENE Ot M60.9 MYOSITIS, UNSPECIFIED 09/20/2016 VDIAL DO, ADILENE Ot N39.0 URINARY TRACT INFECTION, SITE NOT SPECIF 09/20/2016 VIDAL DO, ADILENE Ot N40.0 BENIGN PROSTATIC HYPERPLASIA WITHOUT LOW 09/20/2016 VIDAL DO, ADILENE Ot R91.1 SOLITARY PULMONARY NODULE 09/20/2016 VIDAL DO, ADILENE Ot Z79.899 OTHER [facility] (CURRENT) DRUG THERAPY 09/20/2016 VIADL DO, ADILENE Ot Z90.79 ACQUIRED ABSENCE OF OTHER GENITAL ORGAN( 09/20/2016 VIDAL DO, ADILENE Ot Z96.652 PRESENCE OF LEFT ARTIFICIAL KNEE [...] urinalysis with reflex to culture NO NRG Complete blood count (CBC) with automated white blood cell (WBC) differential - 09/10/16 15:55 Blood leukocytes automated count (number/volume) 7.8 10*3/ uL 4.3-11.0 Blood erythrocytes automated count (number/volume) 4.88 10*6 /uL 4.35-5.85 Venous blood hemoglobin measurement (mass/volume) 14.2 g/dL 13.3-17.7 Blood hematocrit (volume fraction) 42 % 40-54 Automated erythrocyte mean corpuscular volume 86 [foz_us] 80-99 Automated erythrocyte mean corpuscular hemoglobin (mass per erythrocyte) 29 pg 25-34 Automated erythrocyte mean corpuscular hemoglobin concentration measurement ( mass/volume) 34 g/dL 32-36 Automated erythrocyte distribution width ratio 13.1 % 10.0-14.5 Automated blood platelet count (count/volume) 167 10*3/uL 130-400 Automated blood platelet mean volume measurement 11.1 [foz_ us] 7.4-10.4 Automated blood neutrophils/100 leukocytes 61 % 42-75 Automated blood lymphocytes/100 leukocytes 23 % 12-44 Blood monocytes/100 leukocytes 13 % 0-12 Automated blood eosinophils/100 leukocytes 2 % 0-10 Automated blood basophils/100 leukocytes 0 % 0-10 Blood neutrophils automated count (number/volume) 4.8 10*3 1.8-7.8 Blood lymphocytes automated count (number/volume) 1.8 10*3 1.0-4.0 Blood monocytes automated count (number/volume) 1.0 10*3 0.0-1.0 Automated eosinophil count 0.2 10*3/uL 0.0-0.3 Automated blood basophil count (count/volume) 0.0 10*3/uL 0.0-0.1 Comprehensive metabolic panel - 09/10/16 15:55 Serum or plasma sodium measurement (moles/volume) 139 mmol/ L 135-145 Serum or plasma potassium measurement (moles/volume) 4.3 mmol/L 3.6-5.0 Serum or plasma chloride measurement (moles/volume) 109 mmol /L 98-107 Carbon dioxide 23 mmol/L 21-32 Serum or plasma anion gap determination (moles/volume) 7 mmol/L 5-14 Serum or plasma urea nitrogen measurement (mass/volume) 25 mg/dL 7-18 Serum or plasma creatinine measurement (mass/volume) 0.87 mg /dL 0.60-1.30 Serum or plasma urea nitrogen/creatinine mass ratio 29 NRG Serum or plasma creatinine measurement with calculation of estimated glomerular filtration rate > NRG Serum or plasma glucose measurement (mass/volume) 112 mg/dL 70-105 Serum or plasma calcium measurement (mass/volume) 9.5 mg/dL 8.5-10.1 Serum or plasma total bilirubin measurement (mass/volume) 0.8 mg/dL 0.1-1.0 Serum or plasma alkaline phosphatase measurement (enzymatic activity/volume) 68 U/L 40-136 Serum or plasma aspartate aminotransferase measurement (enzymatic activity/ volume) 37 U/L 5-34 Serum or plasma alanine aminotransferase measurement (enzymatic activity/volume ) 36 U/L 0-55 Serum or plasma protein measurement (mass/volume) 7.1 g/dL 6.4-8.2 Serum or plasma albumin measurement (mass/volume) 4.2 g/dL 3.2-4.5 Magnesium - 09/10/16 15:55 Magnesium 2.3 mg/dL 1.8-2.4 Serum or plasma troponin i.cardiac measurement (mass/volume) - 09/10/16 15:55 Serum or plasma troponin i.cardiac measurement (mass/volume) < ng/mL <0.30 Myoglobin, serum - 09/10/16 15:55 Myoglobin, serum 68.7 ng/mL 10.0-92.0 Serum or plasma amylase measurement (enzymatic activity/volume) - 09/10/16 15: 55 Serum or plasma amylase measurement (enzymatic activity/volume) 52 U/L 25-125 PT panel in platelet poor plasma by coagulation assay - 09/10/16 15:55 Prothrombin time (PT) in platelet poor plasma by coagulation assay 12.4 s 12.2-14.7 INR in platelet poor plasma or blood by coagulation assay 1.0 0.8-1.4 Fibrin D-dimer FEU measurement in platelet poor plasma (mass/volume) - 15:55 Fibrin D-dimer FEU measurement in platelet poor plasma (mass/volume) 0.30 ug/mL 0.00-0.49 Activated partial thromboplastin time (aPTT) in platelet poor plasma bycoagulation assay - 09/10/16 15:55 Activated partial thromboplastin time (aPTT) in platelet poor plasma bycoagulation assay 29 s 24-35 Serum or plasma C reactive protein measurement (mass/volume) - 09/10/16 15:55 Serum or plasma C reactive protein measurement (mass/volume) 0.08 mg/dL 0.00-0.50 Erythrocyte sedimentation rate by westergren method - 09/10/16 15:55 Erythrocyte sedimentation rate by westergren method 6 mm 0-30 Serum or plasma troponin i.cardiac measurement (mass/volume) - 09/10/16 18:31 Serum or plasma troponin i.cardiac measurement (mass/volume) < ng/mL <0.30 Complete blood count (CBC) with automated white blood cell (WBC) differential - 09/13/16 15:09 Blood leukocytes automated count (number/volume) 7.7 10*3/ uL 4.3-11.0 Blood erythrocytes automated count (number/volume) 4.64 10*6 /uL 4.35-5.85 Venous blood hemoglobin measurement (mass/volume) 13.7 g/dL 13.3-17.7 Blood hematocrit (volume fraction) 40 % 40-54 Automated erythrocyte mean corpuscular volume 86 [foz_us] 80-99 Automated erythrocyte mean corpuscular hemoglobin (mass per erythrocyte) 30 pg 25-34 Automated erythrocyte mean corpuscular hemoglobin concentration measurement ( mass/volume) 34 g/dL 32-36 Automated erythrocyte distribution width ratio 13.1 % 10.0-14.5 Automated blood platelet count (count/volume) 181 10*3/uL 130-400 Automated blood platelet mean volume measurement 10.9 [foz_ us] 7.4-10.4 Automated blood neutrophils/100 leukocytes 64 % 42-75 Automated blood lymphocytes/100 leukocytes 23 % 12-44 Blood monocytes/100 leukocytes 10 % 0-12 Automated blood eosinophils/100 leukocytes 3 % 0-10 Automated blood basophils/100 leukocytes 0 % 0-10 Blood neutrophils automated count (number/volume) 5.0 10*3 1.8-7.8 Blood lymphocytes automated count (number/volume) 1.8 10*3 1.0-4.0 Blood monocytes automated count (number/volume) 0.8 10*3 0.0-1.0 Automated eosinophil count 0.2 10*3/uL 0.0-0.3 Automated blood basophil count (count/volume) 0.0 10*3/uL 0.0-0.1 Blood lactic acid measurement (moles/volume) - 09/13/16 15:09 Blood lactic acid measurement (moles/volume) 0.55 mmol/L 0.50-2.00 Comprehensive metabolic panel - 09/13/16 15:09 Serum or plasma sodium measurement (moles/volume) 141 mmol/ L 135-145 Serum or plasma potassium measurement (moles/volume) 4.0 mmol/L 3.6-5.0 Serum or plasma chloride measurement (moles/volume) 110 mmol /L 98-107 Carbon dioxide 22 mmol/L 21-32 Serum or plasma anion gap determination (moles/volume) 9 mmol/L 5-14 Serum or plasma urea nitrogen measurement (mass/volume) 25 mg/dL 7-18 Serum or plasma creatinine measurement (mass/volume) 0.85 mg /dL 0.60-1.30 Serum or plasma urea nitrogen/creatinine mass ratio 29 NRG Serum or plasma creatinine measurement with calculation of estimated glomerular filtration rate > NRG Serum or plasma glucose measurement (mass/volume) 115 mg/dL 70-105 Serum or plasma calcium measurement (mass/volume) 9.2 mg/dL 8.5-10.1 Serum or plasma total bilirubin measurement (mass/volume) 0.8 mg/dL 0.1-1.0 Serum or plasma alkaline phosphatase measurement (enzymatic activity/volume) 63 U/L 40-136 Serum or plasma aspartate aminotransferase measurement (enzymatic activity/ volume) 35 U/L 5-34 Serum or plasma alanine aminotransferase measurement (enzymatic activity/volume ) 29 U/L 0-55 Serum or plasma protein measurement (mass/volume) 7.2 g/dL 6.4-8.2 Serum or plasma albumin measurement (mass/volume) 4.3 g/dL 3.2-4.5 Serum or plasma creatine kinase measurement (enzymatic activity/volume) - 09/13 15:09 Serum or plasma creatine kinase measurement (enzymatic activity/volume) 319 U/L 30-200 Serum or plasma C reactive protein measurement (mass/volume) - 09/13/16 15:09 Serum or plasma C reactive protein measurement (mass/volume) 0.08 mg/dL 0.00-0.50 Erythrocyte sedimentation rate by westergren method - 09/13/16 15:09 Erythrocyte sedimentation rate by westergren method 7 mm 0-30 Tick identification panel - 09/13/16 15:09 Serum Ehrlichia chaffeensis IgG antibody detection <1:16 <1:16 Serum Ehrlichia chaffeensis IgM antibody detection <1:10 <1:10 Serum Rickettsia rickettsii IgG antibody assay (units/volume) < <1:16 [place] spotted fever panel < <1: 10 Francisella tularensis antibody assay <1:20 NRG LYME AB G M < 0.01 0.00-0.89 Interpretation of Lyme disease antibody assay Negative Negative Complete urinalysis with reflex to culture - 09/13/16 15:15 Urine color determination YELLOW NRG Urine clarity determination CLEAR NRG Urine pH measurement by test strip 5 5- 9 Specific gravity of urine by test strip 1.030 1.016-1.022 Urine protein assay by test strip, semi-quantitative 1+ NEGATIVE Urine glucose detection by automated test strip NEGATIVE NEGATIVE Erythrocytes detection in urine sediment by light microscopy NEGATIVE NEGATIVE Urine ketones detection by automated test strip 1+ NEGATIVE Urine nitrite detection by test strip NEGATIVE NEGATIVE Urine total bilirubin detection by test strip NEGATIVE NEGATIVE Urine urobilinogen measurement by automated test strip (mass/volume) NORMAL NORMAL Urine leukocyte esterase detection by dipstick 1+ NEGATIVE Automated urine sediment erythrocyte count by microscopy (number/high power field) NONE NRG Automated urine sediment leukocyte count by microscopy (number/high power field ) [HPF] NRG Bacteria detection in urine sediment by light microscopy TRACE NRG Squamous epithelial cells detection in urine sediment by light microscopy 0-2 NRG Crystals detection in urine sediment by light microscopy NONE NRG Casts detection in urine sediment by light microscopy NONE NRG Mucus detection in urine sediment by light microscopy MODERATE NRG Complete urinalysis with reflex to culture YES NRG Bacterial urine culture - 09/13/16 15:15 Bacterial urine culture NG NRG Complete urinalysis with reflex to culture - 09/19/16 15:09 Urine color determination YELLOW NRG Urine clarity determination SLIGHTLY CLOUDY NRG Urine pH measurement by test strip 5 5- 9 Specific gravity of urine by test strip 1.025 1.016-1.022 Urine protein assay by test strip, semi-quantitative 1+ NEGATIVE Urine glucose detection by automated test strip NEGATIVE NEGATIVE Erythrocytes detection in urine sediment by light microscopy NEGATIVE NEGATIVE Urine ketones detection by automated test strip NEGATIVE NEGATIVE Urine nitrite detection by test strip NEGATIVE NEGATIVE Urine total bilirubin detection by test strip NEGATIVE NEGATIVE Urine urobilinogen measurement by automated test strip (mass/volume) NORMAL NORMAL Urine leukocyte esterase detection by dipstick 1+ NEGATIVE Automated urine sediment erythrocyte count by microscopy (number/high power field) NONE NRG Automated urine sediment leukocyte count by microscopy (number/high power field ) [HPF] NRG Bacteria detection in urine sediment by light microscopy NONE NRG Squamous epithelial cells detection in urine sediment by light microscopy 2-5 NRG Crystals detection in urine sediment by light microscopy NONE NRG Casts detection in urine sediment by light microscopy NONE NRG Mucus detection in urine sediment by light microscopy MODERATE NRG Complete urinalysis with reflex to culture NO NRG Complete blood count (CBC) with automated white blood cell (WBC) differential - 09/19/16 15:35 Blood leukocytes automated count (number/volume) 6.5 10*3/ uL 4.3-11.0 Blood erythrocytes automated count (number/volume) 4.89 10*6 /uL 4.35-5.85 Venous blood hemoglobin measurement (mass/volume) 14.2 g/dL 13.3-17.7 Blood hematocrit (volume fraction) 42 % 40-54 Automated erythrocyte mean corpuscular volume 86 [foz_us] 80-99 Automated erythrocyte mean corpuscular hemoglobin (mass per erythrocyte) 29 pg 25-34 Automated erythrocyte mean corpuscular hemoglobin concentration measurement ( mass/volume) 34 g/dL 32-36 Automated erythrocyte distribution width ratio 13.2 % 10.0-14.5 Automated blood platelet count (count/volume) 170 10*3/uL 130-400 Automated blood platelet mean volume measurement 10.6 [foz_ us] 7.4-10.4 Automated blood neutrophils/100 leukocytes 60 % 42-75 Automated blood lymphocytes/100 leukocytes 25 % 12-44 Blood monocytes/100 leukocytes 13 % 0-12 Automated blood eosinophils/100 leukocytes 2 % 0-10 Automated blood basophils/100 leukocytes 1 % 0-10 Blood neutrophils automated count (number/volume) 3.9 10*3 1.8-7.8 Blood lymphocytes automated count (number/volume) 1.6 10*3 1.0-4.0 Blood monocytes automated count (number/volume) 0.9 10*3 0.0-1.0 Automated eosinophil count 0.1 10*3/uL 0.0-0.3 Automated blood basophil count (count/volume) 0.0 10*3/uL 0.0-0.1 Blood lactic acid measurement (moles/volume) - 09/19/16 15:35 Blood lactic acid measurement (moles/volume) 0.87 mmol/L 0.50-2.00 Comprehensive metabolic panel - 09/19/16 15:35 Serum or plasma sodium measurement (moles/volume) 138 mmol/ L 135-145 Serum or plasma potassium measurement (moles/volume) 4.2 mmol/L 3.6-5.0 Serum or plasma chloride measurement (moles/volume) 108 mmol /L 98-107 Carbon dioxide 24 mmol/L 21-32 Serum or plasma anion gap determination (moles/volume) 6 mmol/L 5-14 Serum or plasma urea nitrogen measurement (mass/volume) 21 mg/dL 7-18 Serum or plasma creatinine measurement (mass/volume) 0.83 mg /dL 0.60-1.30 Serum or plasma urea nitrogen/creatinine mass ratio 25 NRG Serum or plasma creatinine measurement with calculation of estimated glomerular filtration rate > NRG Serum or plasma glucose measurement (mass/volume) 97 mg/dL 70-105 Serum or plasma calcium measurement (mass/volume) 9.0 mg/dL 8.5-10.1 Serum or plasma total bilirubin measurement (mass/volume) 0.8 mg/dL 0.1-1.0 Serum or plasma alkaline phosphatase measurement (enzymatic activity/volume) 54 U/L 40-136 Serum or plasma aspartate aminotransferase measurement (enzymatic activity/ volume) 24 U/L 5-34 Serum or plasma alanine aminotransferase measurement (enzymatic activity/volume ) 24 U/L 0-55 Serum or plasma protein measurement (mass/volume) 6.5 g/dL 6.4-8.2 Serum or plasma albumin measurement (mass/volume) 3.9 g/dL 3.2-4.5 Serum or plasma creatine kinase measurement (enzymatic activity/volume) - 09/19 15:35 Serum or plasma creatine kinase measurement (enzymatic activity/volume) 107 U/L 30-200 Serum or plasma troponin i.cardiac measurement (mass/volume) - 09/19/16 15:35 Serum or plasma troponin i.cardiac measurement (mass/volume) < ng/mL <0.30 Serum or plasma amylase measurement (enzymatic activity/volume) - 09/19/16 15: 35 Serum or plasma amylase measurement (enzymatic activity/volume) 50 U/L 25-125 Lipase - 09/19/16 15:35 Lipase 19 U/L 8-78 Erythrocyte sedimentation rate by westergren method - 07/19/17 15:35 Erythrocyte sedimentation rate by westergren method 7 mm 0-30 Serum or plasma C reactive protein measurement (mass/volume) - 09/19/16 15:35 Serum or plasma C reactive protein measurement (mass/volume) 0.05 mg/dL 0.00-0.50 Complete blood count (CBC) with automated white blood cell (WBC) differential - 09/20/16 05:33 Blood leukocytes automated count (number/volume) 9.3 10*3/ uL 4.3-11.0 Blood erythrocytes automated count (number/volume) 4.93 10*6 /uL 4.35-5.85 Venous blood hemoglobin measurement (mass/volume) 14.3 g/dL 13.3-17.7 Blood hematocrit (volume fraction) 43 % 40-54 Automated erythrocyte mean corpuscular volume 86 [foz_us] 80-99 Automated erythrocyte mean corpuscular hemoglobin (mass per erythrocyte) 29 pg 25-34 Automated erythrocyte mean corpuscular hemoglobin concentration measurement ( mass/volume) 34 g/dL 32-36 Automated erythrocyte distribution width ratio 13.2 % 10.0-14.5 Automated blood platelet count (count/volume) 178 10*3/uL 130-400 Automated blood platelet mean volume measurement 10.6 [foz_ us] 7.4-10.4 Automated blood neutrophils/100 leukocytes 91 % 42-75 Automated blood lymphocytes/100 leukocytes 8 % 12-44 Blood monocytes/100 leukocytes 1 % 0-12 Automated blood eosinophils/100 leukocytes 0 % 0-10 Automated blood basophils/100 leukocytes 0 % 0-10 Blood neutrophils automated count (number/volume) 8.4 10*3 1.8-7.8 Blood lymphocytes automated count (number/volume) 0.7 10*3 1.0-4.0 Blood monocytes automated count (number/volume) 0.1 10*3 0.0-1.0 Automated eosinophil count 0.0 10*3/uL 0.0-0.3 Automated blood basophil count (count/volume) 0.0 10*3/uL 0.0-0.1 Blood manual differential performed detection - 09/20/16 05:33 Blood monocytes/100 leukocytes 2 % NRG Manual blood segmented neutrophils/100 leukocytes 83 % NRG Blood band neutrophils/100 leukocytes 0 % NRG Manual blood lymphocytes/100 leukocytes 8 % NRG Manual eosinophils/100 leukocytes in nose 0 % NRG Manual blood basophils/100 leukocytes 0 % [facility] Blood lymphocytes variant/100 leukocytes 7 % [facility] Blood poikilocytosis detection by light microscopy SLIGHT [facility] Comprehensive metabolic panel - 09/20/16 05:33 Serum or plasma sodium measurement (moles/volume) 140 mmol/ L 135-145 Serum or plasma potassium measurement (moles/volume) 4.3 mmol/L 3.6-5.0 Serum or plasma chloride measurement (moles/volume) 110 mmol /L 98-107 Carbon dioxide 23 mmol/L 21-32 Serum or plasma anion gap determination (moles/volume) 7 mmol/L 5-14 Serum or plasma urea nitrogen measurement (mass/volume) 19 mg/dL 7-18 Serum or plasma creatinine measurement (mass/volume) 0.82 mg /dL 0.60-1.30 Serum or plasma urea nitrogen/creatinine mass ratio 23 NRG Serum or plasma creatinine measurement with calculation of estimated glomerular filtration rate > [facility] Serum or plasma glucose measurement (mass/volume) 161 mg/dL 70-105 Serum or plasma calcium measurement (mass/volume) 9.0 mg/dL 8.5-10.1 Serum or plasma total bilirubin measurement (mass/volume) 0.8 mg/dL 0.1-1.0 Serum or plasma alkaline phosphatase measurement (enzymatic activity/volume) 57 U/L 40-136 Serum or plasma aspartate aminotransferase measurement (enzymatic activity/ volume) 24 U/L 5-34 Serum or plasma alanine aminotransferase measurement (enzymatic activity/volume ) 22 U/L 0-55 Serum or plasma protein measurement (mass/volume) 6.4 g/dL 6.4-8.2 Serum or plasma albumin measurement (mass/volume) 3.8 g/dL 3.2-4.5 Encounters ACCT No. Visit Date/Time Discharge Status Pt. Type Provider Facility Loc./Unit Complaint [id number] 09/19/2016 14:05:00 2016 13:30:00 DIS Inpatient ADILENE VIDAL DO [facility] 4TH MYOSITIS [id number] 09/13/2016 20:22:00 2016 22:15:00 DIS Outpatient RONDA VÁZQUEZ [facility] 4THo VOLUME DEPLETION,HEADACHE [id number] 09/10/2016 15:43:00 2016 19:25:00 DIS Outpatient AIXA ZENG, JENNA Alves [facility] ER CHEST PAIN [id number] 07/11/2016 10:18:00 2016 13:20:00 DIS Outpatient THOMAS BROOKS MD [facility] ENDO SCREENING [id number] 07/09/2016 12:00:00 2016 13:36:00 DIS Outpatient THOMAS BROOKS MD [facility] PREOP SCREENING [id number] 02/27/2016 11:14:00 2015 14:52:00 DIS Emergency 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
== END 2016-09-20 10:34 | disposition home or self-care (01) ==
LOC: 4TH 14:00 → UNDOADMOB 14:05 → 4TH 14:05 → UNDODISOB 09-20 13:30
PROVIDERS: ADMIT Internal Medicine; ATTEND Internal Medicine
DX: M60.9 Myositis, unspecified (principal); R91.1 Solitary pulmonary nodule; M06.09 Rheumatoid arthritis without rheumatoid factor, multiple sites; M35.00 Sjogren syndrome, unspecified; N39.0 Urinary tract infection, site not specified; E78.00 Pure hypercholesterolemia, unspecified; N40.0 Benign prostatic hyperplasia without lower urinary tract symptoms; Z79.899 Other long term (current) drug therapy; Z96.652 Presence of left artificial knee joint; Z90.79 Acquired absence of other genital organ(s)
CPT/HCPCS: 36415; 71020; 74020; 80053; 81000; 82150; 82550; 83605; 83690; 84484; 85007; 85025; 85027; 85652; 86141; 93005; 99211; G0378

== ENCOUNTER → 2020-03-01 | Outpatient (CLI) | payer MEDICARE, OTHER ==
[~2020-03-01] MED LIST changes: +CATHETER FLUSH 10 ML SYR IV PRN; +IBUP-30 PO; +LEFL20TA18 PO; +LEVO500T80 PO; +NAPR1TAB21 PO; +PRED10TA22 PO; +SULF-11 PO
--- NOTE | 2020-03-01 17:52 | Diagnostic Imaging Report ---
EXAMINATION: Bone scintigraphy, triple phase. HISTORY: Knee replacement, evaluate for loosening of the right knee replacement COMPARISON: None available. TECHNIQUE: A three phase bone scan of both knees was performed after the intravenous administration of 27.1 [id number]. Flow, blood pool and delayed images were obtained. FINDINGS: There is normal flow to both knees. There is relatively increased flow about the right knee compared to the left. There is increased uptake on the blood pool images as well as on the delayed images about the right knee. Photopenia is seen in both knees in a configuration suggestive of prior arthroplasty; however, no films are available for comparison. IMPRESSION: 1. Three-phase increased uptake about the right knee. In the setting of an arthroplasty, this may represent infection or loosening. Dictated by: Dictated on workstation # [id number]
== END ==
LOC: CARD 11:51
PROVIDERS: ATTEND Orthopaedic Surgery Sports Medicine
DX: Z96.651 Presence of right artificial knee joint (principal)
CPT/HCPCS: 78315; A9503